=== PATIENT | female | born 1965 | race Caucasian/White ===

== ENCOUNTER 2016-04-02 21:54 | Observation (INO) ==
[2016-04-02] MEDS ORDERED: Sulfamethoxazole/Trimeth DS 1 EACH TABLET PO ONE (22:08)
[2016-04-02] MEDS ORDERED: cephALEXin 250 MG CAPSULE PO ONE (22:08)
[2016-04-02] MEDS ORDERED: *HR* HYDROcodone/Acet 5/325 mg TABLET PO ONE (22:09)
--- NOTE | 2016-04-02 22:12 | Emergency Department Note ---
Disposition Clinical Impression: Abscess of breast Cellulitis Qualifiers: Site of cellulitis: trunk Site of cellulitis of trunk: chest wall Qualified Code(s): L03.313 - Cellulitis of chest wall Disposition: Admitted As Inpatient Forms: ED Satisfaction Letter Skin/Abscess/FB HPI Chief complaint: ED Skin/Abscess/Foreign Body Stated complaint: right breast problem s/p surgery Time Seen by Provider: 04/02/16 22:01 Source: patient Limitations: no limitations Nursing Notes Reviewed: Yes Vital Signs Reviewed: Yes Pt Subjective Complaint: abscess/boil Onset (ago): hour(s) (2) Location: chest (right breast) Severity: severe Quality: burning Consistency: constant Improves with: none Worsens with: palpation Context: other (patient Had a cyst removal of the breast on March [address] Ede Delgado) Associated symptoms: Denies: fever, chills Treatments prior to arrival: attempted to drain pus at home Home Medications Medication Instructions Recorded Confirmed Oxybutynin [Ditropan] 15 mg PO DAILY 10/31/14 03/18/16 Atorvastatin [Lipitor] 40 mg PO HS 02/01/16 03/18/16 ClonazePAM [Klonopin] 1 mg PO BID 02/01/16 03/18/16 Estradiol [Estrace] 1 mg PO DAILY 02/01/16 03/18/16 HydrOXYzine Pamoate [Vistaril] 50 mg PO Q8H 02/01/16 03/18/16 Lurasidone [Latuda] 20 mg PO DAILY 02/01/16 03/18/16 Metoprolol [Lopressor] 25 mg PO DAILY 02/01/16 03/18/16 SUMAtriptan [Imitrex] 50 mg PO DAILY PRN 02/01/16 03/18/16 Aspirin 81 mg PO DAILY 03/18/16 03/18/16 ClonazePAM [Klonopin] 1 mg PO BID 03/18/16 03/18/16 Duloxetine [Cymbalta] 20 mg PO BID 03/18/16 03/18/16 Gabapentin [Neurontin] 600 mg PO TID 03/18/16 03/18/16 Insulin ASPART [Novolog Flexpen] 15 unit SQ BID 03/18/16 03/18/16 Insulin Glargine,Hum.rec.anlog 40 unit SQ HS 03/18/16 03/18/16 [Lantus Solostar] Loratadine [Allergy Relief] 10 mg PO DAILY 03/18/16 03/18/16 Nitroglycerin [Nitrostat] 0.4 mg SL AD PRN 03/18/16 03/18/16 Nut.tx.glucose Intolerance,Soy 1 each PO TIDWM 03/18/16 03/18/16 [Glucerna] Omeprazole [PriLOSEC] 20 mg PO BIDAC 03/18/16 03/18/16 Spironolactone [Aldactone] 100 mg PO DAILY 03/18/16 03/18/16 Previous Rx's Medication Instructions Recorded OxyCODONE/APAP 5/325 [Percocet 1 each PO Q6HR PRN #30 tablet 03/18/16 5/325 MG] Allergies Allergy/AdvReac Type Severity Reaction Status Date / Time celecoxib [From Celebrex] Allergy Rash Verified 10/31/14 19:33 divalproex sodium Allergy Rash Verified 10/31/14 19:33 [From Depakote] phenytoin [From Dilantin] Allergy Rash Verified 10/31/14 19:33 [place] Allergy Rash Verified 01/27/16 16:00 Bleach (Sodium Hypochlorite) AdvReac Hives Verified 01/27/16 16:00 IVP DYE Allergy Rash Uncoded 10/31/14 19:33 All systems ED: reviewed and negative except as stated. Constitutional: Denies: fever, chills Past Medical History - Past Medical History Medical history: Reports: COPD, diabetes, GERD, migraine, other Surgical history: Reports: cholecystectomy, orthopedic, other Psychiatric history: Reports: anxiety, bipolar, depression - Social History Smoking Status: Current every day smoker Smokeless Tobacco Status: No Alcohol use: Reports: none Drug use: Reports: marijuana Physical Exam - General Limitations: no limitations General appearance: alert, in no apparent distress - Head Head exam: atraumatic, normocephalic, normal inspection - Eye Eye exam: Present: normal appearance, PERRL, EOMI - Expanded Eye Exam Pupils: Left: reactive - ENT ENT exam: normal exam, normal oropharynx, mucous membranes moist - Expanded ENT Exam External ear exam: Present: normal external inspection Mouth exam: Present: normal external inspection Teeth exam: Present: normal inspection Throat exam: Present: normal inspection - Neck Neck exam: Present: normal inspection, full ROM, trachea midline - Chest Chest inspection: Present: other (Inferior margin of the patient's right breast is complaining of some tenderness there is a minimal amount of erythema may be 2 cm maximum I cannot express any pus she states she had a half-gallon of pus draining out of her nipple see any fluid with firm pressure from the wound. Nothing is able to be cultured) - Respiratory Respiratory exam: Present: normal lung sounds bilaterally - Cardiovascular Cardiovascular exam: Present: regular rate, normal rhythm, normal heart sounds - Abdominal Exam Abdominal exam: Present: soft, Non-Tender. Absent: tenderness, distention, guarding, rebound, rigidity - Extremities Exam Extremities exam: Present: normal inspection, full ROM. Absent: tenderness, pedal edema - Expanded Upper Extremity Exam Shoulder exam: Present: normal inspection, full ROM Arm exam: Present: normal inspection, full ROM Elbow exam: Present: normal inspection, full ROM Forearm/Wrist exam: Present: normal inspection, full ROM Hand exam: Present: normal inspection, full ROM Vascular exam: Normal: capillary refill, radial pulse - Expanded Lower Extremity Exam Hip/Pelvis exam: Present: normal inspection, full ROM Upper leg exam: Present: normal inspection, full ROM Knee exam: Present: normal inspection, full ROM Lower leg exam: Present: normal inspection, full ROM Ankle exam: Present: normal inspection, full ROM Foot/toe exam: Present: normal inspection, full ROM Neurovascular/Tendon exam: Absent: motor deficit, sensory deficit, tendon deficit - Back Exam Back exam: Present: normal inspection, full ROM. Absent: tenderness - Neurological Exam Neurological exam: Present: alert, oriented X3 - Expanded Neurological Exam Patient oriented to: Present: person, place, time Coma Scale Eye Opening: Spontaneous Coma Scale Motor Response: Obeys Commands Coma Scale Verbal Response: Oriented Coma Scale Total: 15 - Psychiatric Psychiatric exam: Present: normal affect, normal mood - Skin Skin exam: Present: warm, dry, intact, normal color Course Vital Signs Temperature 98.4 F 04/02/16 21:56 Pulse Rate 85 04/02/16 21:56 Respiratory Rate 18 04/02/16 21:56 Blood Pressure 117/77 04/02/16 21:56 O2 Sat by Pulse Oximetry 98 04/02/16 21:56 Temperature 98.4 F 04/02/16 21:56 Pulse Rate 85 04/02/16 21:56 Respiratory Rate 18 04/02/16 21:56 Blood Pressure 117/77 04/02/16 21:56 O2 Sat by Pulse Oximetry 98 04/02/16 21:56 Oxygen Delivery Oxygen Delivery Room Air Skin/Abscess/Foreign Body - Differential Diagnosis Likely: abscess of skin or subcutaneous tissue, allergic reaction to drug, cellulitis, contact dermatitis - Medical Records Medical records reviewed: Yes I reviewed the patient's medical records. - Lab Data Lab results reviewed: Yes I reviewed the patient's lab results. Result diagrams: 04/02/16 22:56 04/02/16 22:56 Lab Results 04/02/16 04/02/16 Range/Units 22:56 22:56 WBC 13.7 H (4.3-11.1) K/mcL RBC 3.76 L (3.82-4.97) M/mcL Hgb 10.9 L (11.5-15.4) g/dL Hct 33.3 L (35.3-44.9) % MCV 88.6 (83.0-100.0) fL MCH 29.0 (28.0-33.3) pg MCHC 32.7 (31.6-35.5) g/dL RDW 13.7 (11.5-14.5) % Plt Count 273 (140-400) K/mcL MPV 10.5 (9.4-12.4) fL Immature Gran % 0.5 (0-4) % Seg Neutrophils % 60.6 % Lymphocytes % 27.6 % Monocytes % 8.9 % Eosinophils % 2.2 % Basophils % 0.2 % Neutrophils # 8.3 (1.6-8.9) K/mcL Lymphocytes # 3.8 (0.6-4.6) K/mcL Monocytes # 1.2 (0.0-1.3) K/mcL Eosinophils # 0.3 (0.0-0.6) K/mcL Basophils # 0.0 (0.0-0.2) K/mcL Immature Plt Fraction 4.2 (1.1-6.1) % Sodium 133 L (136-145) mEq/L Potassium 3.8 (3.5-4.5) mEq/L Chloride 109 (98-109) mEq/L Carbon Dioxide 17 L (19-29) mEq/L BUN 14 (7-20) mg/dL Creatinine 1.49 H (0.57-1.11) mg/dL Est GFR ( Amer) 45 L (> 60) Est GFR (Non-Af Amer) 37 L (> 60) BUN/Creatinine Ratio 9 (6-26) Glucose 57 L (70-99) mg/dL Calculated Osmolality 274 L (280-300) Calcium 8.4 L (8.6-10.8) mg/dL
[2016-04-02] MEDS ORDERED: Vancomycin 1,250 MG in D5% in Water 250 ML IVPB ONE ×2 (23:00→23:29)
[2016-04-02 23:08] LABS: Hematocrit 33.3 % (35.3-44.9); Hemoglobin 10.9 g/dL (11.5-15.4); Immature Platelets 4.2 % (1.1-6.1); Mean Corpuscular HGB Conc 32.7 g/dL (31.6-35.5); Mean Corpuscular Volume 88.6 fL (83.0-100.0); Mean Platelet Volume 10.5 fL (9.4-12.4); Platelet Count 273 K/mcL (140-400); Red Blood Count 3.76 M/mcL (3.82-4.97); Red Cell Distribution Width 13.7 % (11.5-14.5); Segmented Neutrophils % 60.6 %
[2016-04-02 23:09] LABS: Basophils % 0.2 %; Eosinophils # 0.3 K/mcL (0.0-0.6); Eosinophils % 2.2 %; Immature Granulocytes % 0.5 % (0-4); Lymphocytes # 3.8 K/mcL (0.6-4.6); Lymphocytes % 27.6 %; Monocytes # 1.2 K/mcL (0.0-1.3); Monocytes % 8.9 %; Neutrophils # 8.3 K/mcL (1.6-8.9)
[2016-04-02 23:20] LABS: Calcium 8.4 mg/dL (8.6-10.8); Potassium 3.8 mEq/L (3.5-4.5)
[2016-04-02] MEDS ORDERED: Piperacillin/Tazobactam 3.375 GM in D5% in Water (Mini-Bag+) 100 ML IVPB ONE (23:29)
[2016-04-02] MEDS ORDERED: *HR* HYDROmorphone (PF) 1 MG/ML SYRINGE IV ONE (23:30)
[2016-04-02] MEDS ORDERED: Ondansetron 4 MG/2 ML VIAL IV ONE (23:30)
[2016-04-03 00:19] LABS: Hemoglobin A1C 6.5 %
[2016-04-03] MEDS ORDERED: Naloxone 0.4 MG/ML INJ IVP PRN (01:34)
[2016-04-03] MEDS ORDERED: Ondansetron 4 MG/2 ML VIAL IVP PRN (01:34)
[2016-04-03] MEDS ORDERED: *HR* Dextrose 50 % in Water (Syg) 50 ML SYRINGE IVP PRN (01:38)
[2016-04-03] MEDS ORDERED: D5% in Water 1,000 ML IV PRN (01:38)
[2016-04-03] MEDS ORDERED: Dextrose Gel 15 GM PO PRN ×2 (01:38)
[2016-04-03] MEDS ORDERED: Ipratropium/Albuterol Neb 3 ML IH PRN (01:41)
--- NOTE | 2016-04-03 02:08 | Internal Med History&Physical ---
Date of Encounter: 04/03/16 Time of Encounter: 01:15 Assessment and Plan (1) Breast abscess Current visit: Yes Status: Acute -Infected surgical site s/p right breast cyst resection -f/u wound cultures -f/u right breast US -continue IV abx (pharmacy to dose Vancomycin, follow up Vanco trough) -please call surgical consultation in am, surgery performed by Dr. Delgado. 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 Qualified Code(s): E11.8 - Type 2 diabetes mellitus with unspecified complications; Z79.4 - care home (current) use of insulin (3) COPD (chronic obstructive pulmonary disease) Current visit: Yes Status: Chronic Not in acute exacerbation Not on home oxygen continue to monitor O2 sat O2 supplementation as needed bronchodilators as needed restart home medications after verification Qualifiers: COPD type: unspecified COPD Qualified Code(s): J44.9 - Chronic obstructive pulmonary disease, unspecified (4) Hypertension Current visit: Yes Status: Chronic BP within acceptable range continue home medication after verification Qualifiers: Hypertension type: essential hypertension Qualified Code(s): I10 - Essential (primary) hypertension (5) CKD (chronic kidney disease) Current visit: Yes Status: Chronic Kidney function appears to be at baseline continue to monitor Qualifiers: Chronic kidney disease stage: stage 3 (moderate) Qualified Code(s): N18.3 - Chronic kidney disease, stage 3 (moderate) (6) DVT prophylaxis Current visit: Yes Status: Acute Heparin SQ (7) Cigarette smoker Current visit: Yes Status: Acute -Smoking cessation counseling provided -patient reports of trying to quit but not ready to completely quit at this time -Nicotine replacement therapy provided while hospitalized Internal Medicine - H&P: HPI Chief complaint: drainage from right breast Admitted From: Home Plans for Post Hospital Care: Home History of present illness: Ms. Dent is a 51 year old female with PMH of DM, HTN, Epilepsy, GERD, migraine, Depression, anxiety, bipolar dx who is s/p right breast cyst excision on 03/18/16 presents to the ER for evaluation of drainage from the right breast at the site of the resected cyst. Pt states she forgot about her follow up appointment with surgical clinic which was a couple of days ago. States she noticed drainage at the surgical site starting around 8pm and reports of being a significant amount, foul smelling discharge which prompted her visit to the ER. In the ER initially the ER physician was not able to notice any discharge, however during his re-evaluation he noted a purulent discharge which was sent for cultures. Patient reports of having diabetic foot ulcers and underwent surgical resection of her toes by Dr. Figueroa in January 2016. During my evaluation patient is sitting comfortably in bed, reports of adequate pain relief with the medication she received in the ER. With mild palpation, patient is still have purulent discharge from the right breast at the surgical site. She denies any other discomfort at this time. Social Hx: Every day smoker-1ppd Past Med Surg Social Fam HX - Past Medical History Medical history: COPD, diabetes, GERD, hyperlipidemia, hypertension, migraine, other Psychiatric history: anxiety, bipolar, depression - Past Surgical History Surgical History: appendectomy, , cholecystectomy, hysterectomy, orthopedic, other - Social History Smoking Status: Current every day smoker Smokeless Tobacco Status: No Alcohol use: none Drug use: none - Family History Mother Living Status: Cause of : Heart attack Hx Family Cardiac Disorders: Yes (Heart attack) Hx Family Respiratory Disorders: Yes (copd) Hx Family Cancer: Yes (breast cancer) Hx Family Endocrine Disorder: Yes (Diabetes) Internal Medicine - H&P: Meds Oxybutynin [Ditropan] 15 mg PO DAILY 10/31/14 [History] Atorvastatin [Lipitor] 40 mg PO HS 02/01/16 [History] ClonazePAM [Klonopin] 1 mg PO BID 02/01/16 [History] Estradiol [Estrace] 1 mg PO DAILY 02/01/16 [History] HydrOXYzine Pamoate [Vistaril] 50 mg PO Q8H 02/01/16 [History] Lurasidone [Latuda] 20 mg PO DAILY 02/01/16 [History] Metoprolol [Lopressor] 25 mg PO DAILY 02/01/16 [History] SUMAtriptan [Imitrex] 50 mg PO DAILY PRN 02/01/16 [History] Aspirin 81 mg PO DAILY 03/18/16 [History] ClonazePAM [Klonopin] 1 mg PO BID 03/18/16 [History] Duloxetine [Cymbalta] 20 mg PO BID 03/18/16 [History] Gabapentin [Neurontin] 600 mg PO TID 03/18/16 [History] Insulin ASPART [Novolog Flexpen] 15 unit SQ BID 03/18/16 [History] Insulin Glargine,Hum.rec.anlog [Lantus Solostar] 40 unit SQ HS 03/18/16 [History ] Loratadine [Allergy Relief] 10 mg PO DAILY 03/18/16 [History] Nitroglycerin [Nitrostat] 0.4 mg SL AD PRN 03/18/16 [History] Nut.tx.glucose Intolerance,Soy [Glucerna] 1 each PO TIDWM 03/18/16 [History] Omeprazole [PriLOSEC] 20 mg PO BIDAC 03/18/16 [History] OxyCODONE/APAP 5/325 [Percocet 5/325 MG] 1 each PO Q6HR PRN #30 tablet 03/18/16 [Rx] Spironolactone [Aldactone] 100 mg PO DAILY 03/18/16 [History] Allergies celecoxib [From Celebrex] Allergy (Verified 10/31/14 19:33) Rash divalproex sodium [From Depakote] Allergy (Verified 10/31/14 19:33) Rash phenytoin [From Dilantin] Allergy (Verified 10/31/14 19:33) Rash [place] Allergy (Verified 01/27/16 16:00) Rash Bleach (Sodium Hypochlorite) Adverse Reaction (Verified 01/27/16 16:00) Hives IVP DYE Allergy (Uncoded 10/31/14 19:33) Rash All Systems PM: A 10-system review of systems was performed and is negative for pertinent findings except as documented above in the HPI. - Constitutional Constitutional: no chills, no fever(s) - Cardiovascular Cardiovascular ROS IM: no chest pain, no lightheadedness, no palpitations - Respiratory Respiratory: no cough, no wheezing, no chest congestion - Gastrointestinal Gastrointestinal: no constipation, no diarrhea, no nausea, no vomiting - Constitutional Vitals: Temp Pulse Resp BP Pulse Ox 97.8 F 64 16 109/67 96 04/03/16 01:28 04/03/16 01:28 04/03/16 01:28 04/03/16 01:28 04/03/16 01:28 General appearance: Present: A&O X 3, no acute distress, obese, answers questions appropriately - Head Head exam: Present: atraumatic, normocephalic - Eye Eye exam: Present: PERRL, conjuntiva pink, sclera anicteric - Respiratory Respiratory exam: Present: CTAB. Absent: accessory muscle use, rales, rhonchi, wheezes - Cardiovascular Cardiovascular exam: Present: RRR, +S1, +S2. Absent: diastolic murmur, gallop, rubs, systolic murmur - GI/Abdominal GI/Abdominal exam: Present: normal bowel sounds, soft, no peritoneal signs. Absent: distended, tenderness - Extremities Exam Extremities exam: Present: warm, radial pulses palpable and symetrical (right foot wrapped in dressing). Absent: calf tenderness, pedal edema - Neurological Exam Neurological exam: Present: alert, oriented X3 - Psychiatric Psychiatric exam: Present: normal affect, normal mood - Other Additional findings: Right Breast Exam: lateral inferior areolar erythema at the surgical site, purulent drainage noted with palpation, mild tenderness to palpation) Internal Med - H&P Results - Labs CBC & Chem 7: 04/02/16 22:56 04/02/16 22:56
[2016-04-03] MEDS ORDERED: Povidone-Iodine 237 ML BOTTLE TP ONE (02:20)
[2016-04-03] MEDS ORDERED: Lidocaine 4% CREAM (LMX) 5 GM TP ONE (02:21)
[2016-04-03] MEDS: Nicotine 21 MG PATCH.TD24 TD SCH (02:34)
[2016-04-03] MEDS: 0.9 % Sodium Chloride 1,000 ML IVC SCH ×2 (02:35→21:10)
[2016-04-03] MEDS: *HR* HYDROcodone/Acet 5/325 mg TABLET PO PRN ×2 (04:16→12:29)
[2016-04-03] MEDS: clonazePAM 1 MG TABLET PO PRN (04:16)
[2016-04-03 05:50] LABS: Basophils % 0.4 %; Eosinophils # 0.4 K/mcL (0.0-0.6); Eosinophils % 3.5 %; Hematocrit 31.4 % (35.3-44.9); Hemoglobin 10.3 g/dL (11.5-15.4); Immature Granulocytes % 0.7 % (0-4); Lymphocytes # 3.6 K/mcL (0.6-4.6); Lymphocytes % 32.9 %; Mean Corpuscular HGB Conc 32.8 g/dL (31.6-35.5); Mean Corpuscular Hemoglobin 29.2 pg (28.0-33.3); Mean Platelet Volume 10.8 fL (9.4-12.4); Monocytes % 9.5 %; Neutrophils # 5.8 K/mcL (1.6-8.9); Platelet Count 231 K/mcL (140-400); Red Blood Count 3.53 M/mcL (3.82-4.97); Red Cell Distribution Width 13.6 % (11.5-14.5)
[2016-04-03] MEDS ORDERED: Vancomycin 1,000 MG in D5% in Water 250 ML IVPB SCH (06:00)
[2016-04-03 06:08] LABS: Calcium 7.9 mg/dL (8.6-10.8); Magnesium 1.3 mg/dL (1.6-2.6); Potassium 3.8 mEq/L (3.5-4.5)
[2016-04-03] MEDS: *HR* Heparin 5,000 UNIT/ML VIAL SQ SCH ×3 (06:42→23:35)
[2016-04-03] MEDS: Insulin LISPRO 300 UNITS/3 ML VIAL SQ SCH ×4 (08:11→21:32)
[2016-04-03] MEDS: Piperacillin/Tazobactam 3.375 GM in D5% in Water (Mini-Bag+) 100 ML IVPB SCH ×3 (08:14→23:34)
[2016-04-03] MEDS ORDERED: Nitroglycerin 0.4 MG TAB.SUBL SL PRN (13:05)
--- NOTE | 2016-04-03 13:39 | General Surgery Consult Note ---
<Alessia Hurt - Last Filed: 04/03/16 13:34> Date of Encounter: 04/03/16 Time of Encounter: 13:34 Assessment and Plan (1) Cellulitis Current Visit: Yes Status: Acute possible abscess wound culture pending right breast ultrasound ordered continue IV antibiotics - Vancomycin and Zosyn change abd pad daily-BID pain control supportive care Qualifiers: Site of cellulitis: trunk Site of cellulitis of trunk: chest wall Qualified Code(s): L03.313 - Cellulitis of chest wall (2) CKD (chronic kidney disease) Current Visit: Yes Status: Chronic at baseline management per medicine service Qualifiers: Chronic kidney disease stage: stage 3 (moderate) Qualified Code(s): N18.3 - Chronic kidney disease, stage 3 (moderate) (3) COPD (chronic obstructive pulmonary disease) Current Visit: Yes Status: Chronic Qualifiers: COPD type: unspecified COPD Qualified Code(s): J44.9 - Chronic obstructive pulmonary disease, unspecified (4) Diabetes mellitus Current Visit: Yes Status: Chronic management per medicine service Qualifiers: Diabetes mellitus type: type 2 Diabetes mellitus complication status: with unspecified complications Diabetes mellitus terminal operator insulin use: with terminal operator use Qualified Code(s): E11.8 - Type 2 diabetes mellitus with unspecified complications; Z79.4 - snf (current) use of insulin (5) Hypertension Current Visit: Yes Status: Chronic management per medicine service Qualifiers: Hypertension type: essential hypertension Qualified Code(s): I10 - Essential (primary) hypertension (6) DVT prophylaxis Current Visit: Yes Status: Acute heparin SQ History of Present Illness Consult date: 04/03/16 Reason for consult: other (?breast abscess) Requesting physician: Don Wilder History of present illness: Ms. Dent is a 51 yo female who presented to the ER complaining of drainage of pus from her incision site on her right breast. She had a right breast lumpectomy with excision of nipple lesion by Dr. Delgado on 03/18/2016. (The specimen was 3x3x2 cm, the sinus tract in the nipple was 6x5x3 mm.) The patient noticed drainage last night and came to the ER. She was admitted to the hospital for cellulitis and possible breast abscess. Past Med Surg Social Fam HX - Past Medical History Medical history: COPD, diabetes, GERD, hyperlipidemia, hypertension, migraine, other Psychiatric history: anxiety, bipolar, depression - Past Surgical History Surgical History: appendectomy, , cholecystectomy, hysterectomy, orthopedic, other - Social History Smoking Status: Current every day smoker Smokeless Tobacco Status: No Alcohol use: none Drug use: none - Family History Mother Living Status: Cause of : Heart attack Hx Family Cardiac Disorders: Yes (Heart attack) Hx Family Respiratory Disorders: Yes (copd) Hx Family Cancer: Yes (breast cancer) Hx Family Endocrine Disorder: Yes (Diabetes) Medications and Allergies Oxybutynin [Ditropan] 15 mg PO DAILY 10/31/14 [History] Atorvastatin [Lipitor] 20 mg PO DAILY 02/01/16 [History] Estradiol [Estrace] 1 mg PO DAILY 02/01/16 [History] HydrOXYzine Pamoate [Vistaril] 25 mg PO Q8H 02/01/16 [History] Lurasidone [Latuda] 40 mg PO DAILY 02/01/16 [History] Metoprolol [Lopressor] 12.5 mg PO BID 02/01/16 [History] SUMAtriptan [Imitrex] 50 mg PO DAILY PRN 02/01/16 [History] ClonazePAM [Klonopin] 1 mg PO BID 03/18/16 [History] Duloxetine [Cymbalta] 20 mg PO BID 03/18/16 [History] Gabapentin [Neurontin] 600 mg PO TID 03/18/16 [History] Loratadine [Allergy Relief] 10 mg PO DAILY 03/18/16 [History] Nitroglycerin [Nitrostat] 0.4 mg SL PRN PRN 03/18/16 [History] Nut.tx.glucose Intolerance,Soy [Glucerna] 1 each PO TIDWM 03/18/16 [History] Omeprazole [PriLOSEC] 20 mg PO DAILY 03/18/16 [History] Spironolactone [Aldactone] 100 mg PO DAILY 03/18/16 [History] Albuterol Sulfate [Proair Hfa] 2 puff IH Q6H PRN 04/03/16 [History] Aspirin [Lo-Dose Aspirin EC] 81 mg PO DAILY 04/03/16 [History] Budesonide/Formoterol 160/4.5 [Symbicort 160/4.5] 2 puff IH BID 04/03/16 [ History] Calcium Carbonate/Vitamin D3 [Oyster Shell Calcium-Vit D Tab] 1 tab PO BID 04/03 [History] Insulin ASPART [NovoLOG] 2 - 12 unit SQ TIDWM 04/03/16 [History] Insulin Glargine,Hum.rec.anlog [Lantus Solostar] 40 unit SQ HS 04/03/16 [History ] Lipase/Protease/Amylase [Guillermina Aguiar 24,000 Units Capsule] 1 cap PO QID 04/03/16 [ History] Metformin [Glucophage] 1,000 mg PO BID 04/03/16 [History] Topiramate [Topamax] 200 mg PO BID 04/03/16 [History] Trazodone HCl 150 mg PO HS 04/03/16 [History] Allergies acetaminophen [From Tylenol-Codeine #3] Allergy (Verified 04/03/16 17:04) Anaphylaxis Bleach (Sodium Hypochlorite) Allergy (Verified 04/03/16 17:04) Hives celecoxib [From Celebrex] Allergy (Verified 10/31/14 19:33) Rash codeine [From Tylenol-Codeine #3] Allergy (Verified 04/03/16 17:04) Anaphylaxis divalproex sodium [From Depakote] Allergy (Verified 10/31/14 19:33) Rash phenytoin [From Dilantin] Allergy (Verified 10/31/14 19:33) Rash [place] Allergy (Verified 01/27/16 16:00) Rash cranberry Adverse Reaction (Verified 04/03/16 17:04) Vomiting IVP DYE Allergy (Uncoded 10/31/14 19:33) Rash PINE-KRYSTEN Allergy (Uncoded 04/03/16 17:04) Rash Review of Systems All systems PM: A 10-system review of systems was performed and is negative for pertinent findings except as documented above in the HPI. - Constitutional no chills, no fatigue, no fever(s), no weakness - Breasts pain, skin changes, swelling - Cardiovascular no chest pain - Respiratory no dyspnea - Gastrointestinal no abdominal pain, no change in bowel habits, no vomiting General Surgery Exam Initial Vital Signs Temp Pulse Resp BP Pulse Ox 98.4 F 85 18 117/77 98 04/02/16 21:56 04/02/16 21:56 04/02/16 21:56 04/02/16 21:56 04/02/16 21:56 - General physical appearance well developed, well nourished, no distress - Eyes normal ocular movement - ENT normal mucosa, atraumatic, normocephalic - Neck trachea midline - Respiratory normal respiratory effort, clear to auscultation - Cardiovascular Cardiovascular exam: Present: RRR - Abdomen Abdomen general surgery: Present: bowel sounds present, soft, non tender - Integumentary Integumentary general surgery: Present: other (subareolar skin of right breast erythematous, no drainage on physical exam) - Neurologic Present: CN 2-12 grossly intact - Psychiatric Psychiatric general surgery: Present: A&Ox3 Exam Initial Vital Signs Temp Pulse Resp BP Pulse Ox 98.4 F 85 18 117/77 98 04/02/16 21:56 04/02/16 21:56 04/02/16 21:56 04/02/16 21:56 04/02/16 21:56 Results - Labs 04/03/16 05:12 04/03/16 05:12 Abnormal lab results RBC 3.53 M/mcL (3.82-4.97) L 04/03/16 05:12 Hgb 10.3 g/dL (11.5-15.4) L 04/03/16 05:12 Hct 31.4 % (35.3-44.9) L 04/03/16 05:12 ESR 20 mm/hr (0-15) H 04/02/16 22:56 Sodium 132 mEq/L (136-145) L 04/03/16 05:12 Carbon Dioxide 15 mEq/L (19-29) L 04/03/16 05:12 Creatinine 1.63 mg/dL (0.57-1.11) H 04/03/16 05:12 Est GFR ( Amer) 40 (> 60) L 04/03/16 05:12 Est GFR (Non-Af Amer) 33 (> 60) L 04/03/16 05:12 Glucose 108 mg/dL (70-99) H 04/03/16 05:12 POC Glucose 141 (58-89) H 04/03/16 12:24 Hemoglobin A1c 6.5 % (-5.6) H 04/02/16 22:56 Calculated Osmolality 275 (280-300) L 04/03/16 05:12 Calcium 7.9 mg/dL (8.6-10.8) L 04/03/16 05:12 Magnesium 1.3 mg/dL (1.6-2.6) L 04/03/16 05:12 C-Reactive Protein 13 mg/L (Less than 5) H 04/02/16 22:56 Diabetes panel 04/03/16 Range/Units 05:12 Sodium 132 L (136-145) mEq/L Potassium 3.8 (3.5-4.5) mEq/L Chloride 108 (98-109) mEq/L Carbon Dioxide 15 L (19-29) mEq/L BUN 15 (7-20) mg/dL Creatinine 1.63 H (0.57-1.11) mg/dL Glucose 108 H (70-99) mg/dL Calcium 7.9 L (8.6-10.8) mg/dL Calcium panel 04/03/16 Range/Units 05:12 Calcium 7.9 L (8.6-10.8) mg/dL Phosphorus 4.0 (2.3-4.7) mg/dL Pituitary panel 04/03/16 Range/Units 05:12 Sodium 132 L (136-145) mEq/L Potassium 3.8 (3.5-4.5) mEq/L Chloride 108 (98-109) mEq/L Carbon Dioxide 15 L (19-29) mEq/L BUN 15 (7-20) mg/dL Creatinine 1.63 H (0.57-1.11) mg/dL Glucose 108 H (70-99) mg/dL Calcium 7.9 L (8.6-10.8) mg/dL Adrenal panel 04/03/16 Range/Units 05:12 Sodium 132 L (136-145) mEq/L Potassium 3.8 (3.5-4.5) mEq/L Chloride 108 (98-109) mEq/L Carbon Dioxide 15 L (19-29) mEq/L BUN 15 (7-20) mg/dL Creatinine 1.63 H (0.57-1.11) mg/dL Glucose 108 H (70-99) mg/dL Calcium 7.9 L (8.6-10.8) mg/dL All other labs normal. Consult Discharge Plan - Plan Referrals: Rosy Martinez, JOSE [Primary Care Provider] - <Weston Chris M - Last Filed: 04/03/16 23:49> Date of Encounter: 04/03/16 Review of Systems All systems PM: A 10-system review of systems was performed and is negative for pertinent findings except as documented above in the HPI. General Surgery Exam Initial Vital Signs Temp Pulse Resp BP Pulse Ox 98.4 F 85 18 117/77 98 04/02/16 21:56 04/02/16 21:56 04/02/16 21:56 04/02/16 21:56 04/02/16 21:56 Exam Initial Vital Signs Temp Pulse Resp BP Pulse Ox 98.4 F 85 18 117/77 98 04/02/16 21:56 04/02/16 21:56 04/02/16 21:56 04/02/16 21:56 04/02/16 21:56 Results - Labs 04/03/16 05:12 04/03/16 05:12 Abnormal lab results RBC 3.53 M/mcL (3.82-4.97) L 04/03/16 05:12 Hgb 10.3 g/dL (11.5-15.4) L 04/03/16 05:12 Hct 31.4 % (35.3-44.9) L 04/03/16 05:12 ESR 20 mm/hr (0-15) H 04/02/16 22:56 Sodium 132 mEq/L (136-145) L 04/03/16 05:12 Carbon Dioxide 15 mEq/L (19-29) L 04/03/16 05:12 Creatinine 1.63 mg/dL (0.57-1.11) H 04/03/16 05:12 Est GFR ( Amer) 40 (> 60) L 04/03/16 05:12 Est GFR (Non-Af Amer) 33 (> 60) L 04/03/16 05:12 Glucose 108 mg/dL (70-99) H 04/03/16 05:12 POC Glucose 126 (58-89) H 04/03/16 21:18 Hemoglobin A1c 6.5 % (-5.6) H 04/02/16 22:56 Calculated Osmolality 275 (280-300) L 04/03/16 05:12 Calcium 7.9 mg/dL (8.6-10.8) L 04/03/16 05:12 Magnesium 1.3 mg/dL (1.6-2.6) L 04/03/16 05:12 C-Reactive Protein 13 mg/L (Less than 5) H 04/02/16 22:56 Diabetes panel 04/03/16 Range/Units 05:12 Sodium 132 L (136-145) mEq/L Potassium 3.8 (3.5-4.5) mEq/L Chloride 108 (98-109) mEq/L Carbon Dioxide 15 L (19-29) mEq/L BUN 15 (7-20) mg/dL Creatinine 1.63 H (0.57-1.11) mg/dL Glucose 108 H (70-99) mg/dL Calcium 7.9 L (8.6-10.8) mg/dL Calcium panel 04/03/16 Range/Units 05:12 Calcium 7.9 L (8.6-10.8) mg/dL Phosphorus 4.0 (2.3-4.7) mg/dL Pituitary panel 04/03/16 Range/Units 05:12 Sodium 132 L (136-145) mEq/L Potassium 3.8 (3.5-4.5) mEq/L Chloride 108 (98-109) mEq/L Carbon Dioxide 15 L (19-29) mEq/L BUN 15 (7-20) mg/dL Creatinine 1.63 H (0.57-1.11) mg/dL Glucose 108 H (70-99) mg/dL Calcium 7.9 L (8.6-10.8) mg/dL Adrenal panel 04/03/16 Range/Units 05:12 Sodium 132 L (136-145) mEq/L Potassium 3.8 (3.5-4.5) mEq/L Chloride 108 (98-109) mEq/L Carbon Dioxide 15 L (19-29) mEq/L BUN 15 (7-20) mg/dL Creatinine 1.63 H (0.57-1.11) mg/dL Glucose 108 H (70-99) mg/dL Calcium 7.9 L (8.6-10.8) mg/dL All other labs normal. - Attending Attestation I examined this patient and my medical decision-making was reviewed with the PRESS TENDER/PA/Advanced Practice Nurse/Resident Physician. I agree with the documented findings, disposition and treatment plan as described except to the extent set forth below. I evaluated patient and reviewed the above assessment. Agree with IV antibiotics and monitor drainage of the incision on the 4 x 4 dressing. There is induration noted over the incision but no true abscess identified. To consider opening the incision to allow to drain but will follow white count and perform serial abdominal exam. Dr. Delgado to return on 04/04/2016.
[2016-04-03] MEDS ORDERED: *HR* LORazepam 2 MG/ML VIAL IVP PRN (13:40)
[2016-04-03] MEDS: Gabapentin 300 MG CAPSULE PO SCH ×2 (13:50→20:42)
--- NOTE | 2016-04-03 15:46 | Event Note ---
Date of Encounter: 04/03/16 Time of Encounter: 15:30 51/F Background Medical history: DM with multiple comorbidities, HTN, Dyslipidemia, COPD, SZD, CKD, Recent Breast surgery for cyst removal. Reason for admission : right breast abscess. Hospital course : Patient is admitted for persistent purulent discharge from her right breast. The discharge is mainly from the incision site where the cyst was removed. Patient also has a diabetic foot ulcer for which she was evaluated by surgery. Patient was admitted for persistent purulent discharge from her right breast which is likely secondary to the underlying abscess formation. Patient was started on antibiotics. She was started on vancomycin to cover gram-positive and Zosyn for gram-negative as well as anaerobic coverage. So far patient tolerated antibiotics well. Surgery was consulted and we will follow the recommendation. Vitals: Afebrile, 73/m, blood pressure 116/79, oxygen saturation 98% on room air Examination: I examined this patient at bedside. Examination of her eyes, ears , nose, oral cavity and cervical area did not reveal any abnormality. Examination of the right breast shows purulent discharge from the breast. Examination of the heart and lungs are within normal limits. Examination of the abdomen is benign. Brief neurological examination did not reveal any abnormality. Examination of the skin revealed no bruise or breaks. Assessment: Right breast abscess, diabetic foot ulcers, hypertension Plan: -Continue IV antibiotics. -Follow surgical recommendations. -Pain control. -Resume home medications. I was informed that patient has unwitnessed seizure. Recommended seizure precautions. IV Ativan 2 mg when necessary ordered. Home medications for seizure disorder resumed.
[2016-04-03] MEDS: *HR* OxyCODONE/APAP 7.5/325 TABLET PO PRN ×2 (16:51→20:43)
[2016-04-03] MEDS: Topiramate 100 MG TABLET PO SCH (20:42)
[2016-04-03] MEDS: clonazePAM 1 MG TABLET PO SCH (20:43)
[2016-04-03] MEDS ORDERED: clonazePAM 1 MG TABLET PO SCH (21:00)
[2016-04-03] MEDS: Vancomycin 1,250 MG in D5% in Water 250 ML IVPB SCH (23:35)
[2016-04-04 05:25] LABS: Basophils % 0.5 %; Eosinophils # 0.3 K/mcL (0.0-0.6); Eosinophils % 3.5 %; Hematocrit 35.2 % (35.3-44.9); Hemoglobin 11.2 g/dL (11.5-15.4); Immature Granulocytes % 0.4 % (0-4); Lymphocytes # 3.1 K/mcL (0.6-4.6); Lymphocytes % 37.8 %; Mean Corpuscular HGB Conc 31.8 g/dL (31.6-35.5); Mean Corpuscular Hemoglobin 28.1 pg (28.0-33.3); Mean Corpuscular Volume 88.4 fL (83.0-100.0); Mean Platelet Volume 10.3 fL (9.4-12.4); Monocytes # 0.7 K/mcL (0.0-1.3); Monocytes % 8.3 %; Neutrophils # 4.1 K/mcL (1.6-8.9); Platelet Count 260 K/mcL (140-400); Red Blood Count 3.98 M/mcL (3.82-4.97); Red Cell Distribution Width 13.6 % (11.5-14.5); Segmented Neutrophils % 49.5 %
[2016-04-04] MEDS: *HR* OxyCODONE/APAP 7.5/325 TABLET PO PRN ×3 (05:38→20:06)
[2016-04-04] MEDS: *HR* Heparin 5,000 UNIT/ML VIAL SQ SCH ×3 (05:39→23:41)
[2016-04-04 05:47] LABS: Potassium 4.2 mEq/L (3.5-4.5)
[2016-04-04 05:48] LABS: Albumin 2.8 g/dL (3.5-5.0); Albumin/Globulin Ratio 0.9 (1.1-2.2); Bilirubin,Total 0.3 mg/dL (0.2-1.2); Calcium 8.6 mg/dL (8.6-10.8); Globulin 3.2 g/dL (2.4-3.5)
[2016-04-04] MEDS: Topiramate 100 MG TABLET PO SCH ×2 (09:53→20:05)
[2016-04-04] MEDS: Nicotine 21 MG PATCH.TD24 TD SCH (09:53)
[2016-04-04] MEDS: Gabapentin 300 MG CAPSULE PO SCH ×3 (09:54→20:06)
[2016-04-04] MEDS: clonazePAM 1 MG TABLET PO SCH ×2 (09:54→20:05)
[2016-04-04] MEDS: Piperacillin/Tazobactam 3.375 GM in D5% in Water (Mini-Bag+) 100 ML IVPB SCH ×3 (09:55→23:40)
[2016-04-04] MEDS: Insulin LISPRO 300 UNITS/3 ML VIAL SQ SCH ×4 (09:56→20:06)
--- NOTE | 2016-04-04 12:30 | General Surgery Progress Note ---
Date of Encounter: 04/04/16 Time of Encounter: 10:00 - Assessment and Plan (1) Cellulitis Current Visit: Yes Status: Acute Breast US showed corresponding with the R surgical biospy a complex 4 cm fluid collection with no significant hyperemia, suggestive of hematoma. Preliminary wound culture shows gram neg rods. continue IV antibiotics - Vancomycin and Zosyn change pad daily-BID pain control supportive care Qualifiers: Site of cellulitis: trunk Site of cellulitis of trunk: chest wall Qualified Code(s): L03.313 - Cellulitis of chest wall (2) CKD (chronic kidney disease) Current Visit: Yes Status: Chronic management per medicine service Qualifiers: Chronic kidney disease stage: stage 3 (moderate) Qualified Code(s): N18.3 - Chronic kidney disease, stage 3 (moderate) (3) COPD (chronic obstructive pulmonary disease) Current Visit: Yes Status: Chronic Wheezing heard on exam, no respiratory distress. Management per medicine service Qualifiers: COPD type: unspecified COPD Qualified Code(s): J44.9 - Chronic obstructive pulmonary disease, unspecified (4) Diabetes mellitus Current Visit: Yes Status: Chronic management per medicine service Qualifiers: Diabetes mellitus type: type 2 Diabetes mellitus complication status: with unspecified complications Diabetes mellitus senior care insulin use: with senior care use Qualified Code(s): E11.8 - Type 2 diabetes mellitus with unspecified complications; Z79.4 - intermodal customer service (current) use of insulin (5) Hypertension Current Visit: Yes Status: Chronic management per medicine service Qualifiers: Hypertension type: essential hypertension Qualified Code(s): I10 - Essential (primary) hypertension (6) DVT prophylaxis Current Visit: Yes Status: Acute Heparin SQ Subjective Patient reports: no new complaints, still having pain, afebrile Objective Vital Signs - Last 8 Hours Temp Pulse Resp BP Pulse Ox 04/04/16 10:50 98.5 F 68 14 107/65 98 04/04/16 07:22 97.8 F 61 14 111/61 95 Intake and Output 04/03/16 04/04/16 04/04/16 23:59 07:59 15:59 Intake Total 917 / 917 100 / 100 Output Total 950 / 950 400 / 400 1000 / 1000 Balance -33 / -33 -300 / -300 -1000 / -1000 Intake: IV Fluids 917 / 917 100 / 100 0.9 % Sodium Chloride 1, 817 / 817 000 ML @ 50 mls/hr IVC . Q20H RYLEE Rx#:[id number] Zosyn 3.375 GM In 100 / 100 100 / 100 Dextrose 5% (Minibag+) 100 ML 100 ML @ 25 mls/hr IVPB Q8HR RYLEE Rx#: [id number] Output: Urine 950 / 950 400 / 400 1000 / 1000 Other: Meal Keeping Weight 84.5 kg Blood Glucose* 126 140 223 Patient Weight 04/04/16 23:59 Weight 84.5 kg - General physical appearance well developed, well nourished, moderate pain - Eyes normal ocular movement - ENT normal mucosa, atraumatic, normocephalic - Neck Neck exam: trachea midline - Respiratory normal respiratory effort, other (wheezing b/l) - Cardiovascular Cardiovascular exam: Present: RRR - Abdomen Abdomen: Present: bowel sounds present, soft, non tender - Integumentary other (subareolar skin of right breast eyrthematous, no drainage on physical exam. Noted eyrthema extending up into the LUQ of the right breast. Patient states entire breast is tender, worse with palpation of the inferior portion.) - Neurologic CN 2-12 grossly intact - Psychiatric speech is normal, memory intact - Labs 04/04/16 04:39 04/04/16 04:39 Diabetes panel 04/04/16 Range/Units 04:39 Sodium 138 (136-145) mEq/L Potassium 4.2 (3.5-4.5) mEq/L Chloride 113 H (98-109) mEq/L Carbon Dioxide 16 L (19-29) mEq/L BUN 11 (7-20) mg/dL Creatinine 1.53 H (0.57-1.11) mg/dL Glucose 135 H (70-99) mg/dL Calcium 8.6 (8.6-10.8) mg/dL AST 10 (5-34) Units/L ALT 8 (0-55) Units/L Alkaline Phosphatase 35 L (38-126) Units/L Albumin 2.8 L (3.5-5.0) g/dL Calcium panel 04/04/16 Range/Units 04:39 Calcium 8.6 (8.6-10.8) mg/dL Albumin 2.8 L (3.5-5.0) g/dL Pituitary panel 04/04/16 Range/Units 04:39 Sodium 138 (136-145) mEq/L Potassium 4.2 (3.5-4.5) mEq/L Chloride 113 H (98-109) mEq/L Carbon Dioxide 16 L (19-29) mEq/L BUN 11 (7-20) mg/dL Creatinine 1.53 H (0.57-1.11) mg/dL Glucose 135 H (70-99) mg/dL Calcium 8.6 (8.6-10.8) mg/dL Adrenal panel 04/04/16 Range/Units 04:39 Sodium 138 (136-145) mEq/L Potassium 4.2 (3.5-4.5) mEq/L Chloride 113 H (98-109) mEq/L Carbon Dioxide 16 L (19-29) mEq/L BUN 11 (7-20) mg/dL Creatinine 1.53 H (0.57-1.11) mg/dL Glucose 135 H (70-99) mg/dL Calcium 8.6 (8.6-10.8) mg/dL Total Bilirubin 0.3 (0.2-1.2) mg/dL AST 10 (5-34) Units/L ALT 8 (0-55) Units/L Alkaline Phosphatase 35 L (38-126) Units/L Albumin 2.8 L (3.5-5.0) g/dL Consult Discharge Plan - Plan Referrals: Rosy Martinez, JOSE [Primary Care Provider] -
[2016-04-04] MEDS ORDERED: *HR* HYDROmorphone (PF) 1 MG/ML SYRINGE ONE (15:55)
[2016-04-04] MEDS ORDERED: *HR* HYDROmorphone (PF) 1 MG/ML SYRINGE IVP ONE (16:00)
[2016-04-04] MEDS ORDERED: *HR* HYDROmorphone 2 MG/ML SYRINGE IVP STA (16:04)
--- NOTE | 2016-04-04 16:08 | General Surgery Procedure Note ---
Date of procedure: 04/04/16 Pre-op diagnosis: Right breast abscess Post-op diagnosis: same Procedure: After time-out was performed, a cotton tip applicator was used to open the surgical cavity. There was drainage of copious amounts of purulent, foul smelling drainage. The cavity was completely decompressed and then packed with 1 /4 inch iodoform gauze, covered with dry gauze and taped to secure. The patient tolerated this well. Complications: none Anesthesia: none Surgeon: Shari Carney Estimated blood loss (cc): 0 Pathology: none sent Condition: stable Disposition: no change
--- NOTE | 2016-04-04 17:41 | Internal Med Progress Note ---
Date of Encounter: 04/04/16 Time of Encounter: 17:38 - Assessment and plan (1) Breast abscess Current Visit: Yes Status: Acute Assessment and plan: S/P I and D patient tolerated procedure well On Abx : Vanco and Zosyn ( Day 3) tolerating well. Plan will continue same will follow surgical recommendations. (2) COPD (chronic obstructive pulmonary disease) Current Visit: Yes Status: Chronic Assessment and plan: Stable for now will continue home treatment. not on home oxygen Qualifiers: COPD type: unspecified COPD Qualified Code(s): J44.9 - Chronic obstructive pulmonary disease, unspecified (3) Diabetes mellitus Current Visit: Yes Status: Chronic Assessment and plan: Will follow POC well controlled sugar. Qualifiers: Diabetes mellitus type: type 2 Diabetes mellitus complication status: with unspecified complications Diabetes mellitus intermediate card tender insulin use: with intermediate card tender use Qualified Code(s): E11.8 - Type 2 diabetes mellitus with unspecified complications; Z79.4 - intermediate card tender (current) use of insulin (4) Hypertension Current Visit: Yes Status: Chronic Assessment and plan: Will continue home meds Qualifiers: Hypertension type: essential hypertension Qualified Code(s): I10 - Essential (primary) hypertension - Subjective Interval history: seen and examined. chart reviewed. S/P I and D of abscess Surgical input appreciated. - Constitutional Vitals: Temp Pulse Resp BP Pulse Ox 97.7 F 63 14 109/69 94 L 04/04/16 14:54 04/04/16 14:54 04/04/16 14:54 04/04/16 14:54 04/04/16 14:54 General appearance: Present: A&O X 3, no acute distress, obese, answers questions appropriately - Head Head exam: Present: atraumatic, normocephalic - Eye Eye exam: Present: PERRL, conjuntiva pink, sclera anicteric Pupils: Present: PERRL - Neck Neck exam general surgery: Present: supple, trachea midline. Absent: lymphadenopathy - Respiratory Respiratory exam: Present: CTAB. Absent: accessory muscle use, rales, rhonchi, wheezes - Cardiovascular Cardiovascular exam: Present: RRR, +S1, +S2. Absent: diastolic murmur, gallop, rubs, systolic murmur - GI/Abdominal GI/Abdominal exam: Present: normal bowel sounds, soft, no peritoneal signs. Absent: distended, tenderness - Extremities Exam Extremities exam: Present: warm, radial pulses palpable and symetrical. Absent : calf tenderness, cyanotic, pedal edema - Neurological Exam Neurological exam: Present: CN II-XII intact, oriented X3, no focal deficits. Absent: pronater drift, facial droop, speech deficit - Skin Skin exam: Present: dry, intact Internal Medicine: Result - Labs CBC & Chem 7: 04/04/16 04:39 04/04/16 04:39 Labs: Short CBC 04/04/16 Range/Units 04:39 WBC 8.3 (4.3-11.1) K/mcL Hgb 11.2 L (11.5-15.4) g/dL Hct 35.2 L (35.3-44.9) % Plt Count 260 (140-400) K/mcL Neutrophils # 4.1 (1.6-8.9) K/mcL BMP 04/04/16 04:39 Sodium 138 Potassium 4.2 Chloride 113 H Carbon Dioxide 16 L BUN 11 Creatinine 1.53 H Glucose 135 H Calcium 8.6 Liver Function 04/04/16 Range/Units 04:39 Total Bilirubin 0.3 (0.2-1.2) mg/dL AST 10 (5-34) Units/L ALT 8 (0-55) Units/L Alkaline Phosphatase 35 L (38-126) Units/L Albumin 2.8 L (3.5-5.0) g/dL - Impressions Impressions Breast Ultrasound 04/04/16 07:30 IMPRESSION: Corresponding with the right surgical biopsy site there is a complex 4 cm fluid collection with no significant hyperemia. This suggests a hematoma. BIRADS: BIRADS - CATEGORY 2 Benign, no evidence of malignancy. Normal interval follow-up is recommended in 12 months. OVERALL ASSESSMENT - BENIGN A letter of notification will be sent to the patient regarding the results. [employer] recommends annual mammograms for women 40 years and older. D/ / 04/04/2016 08:24:26 Armand Wise MD / gallo Interpreting Provider: Armand Wise MD Consult Discharge Plan - Plan Referrals: Rosy Martinez, SCHOOL PSYCHOLOGICAL EXAMINER [Primary Care Provider] -
[2016-04-04] MEDS: 0.9 % Sodium Chloride 1,000 ML IVC SCH (22:19)
[2016-04-05] MEDS: *HR* OxyCODONE/APAP 7.5/325 TABLET PO PRN ×5 (00:14→22:45)
[2016-04-05] MEDS: Vancomycin 1,250 MG in D5% in Water 250 ML IVPB SCH (01:39)
[2016-04-05] MEDS ORDERED: Aminoglycoside Consult 1 EACH MC ONE (08:05)
[2016-04-05] MEDS: Piperacillin/Tazobactam 3.375 GM in D5% in Water (Mini-Bag+) 100 ML IVPB SCH (08:37)
--- NOTE | 2016-04-05 08:37 | General Surgery Progress Note ---
Date of Encounter: 04/05/16 Time of Encounter: 07:55 - Assessment and Plan (1) Cellulitis Current Visit: Yes Status: Acute Surgical cavity opened and drained on 04/04/16. Repacked with 1/4 inch iodoform gauze today. Wound culture positive for Enterobacter cloacae Patient on Vancomycin and Zosyn, will transition to PO antibiotics. change pad daily-BID pain control supportive care Discussed with Alecia Carney CNP. Continue wound care. Follow up in 1 week. Surgery will sign off at this time thank you for involving us in this patient's care, please feel free to contact us with any questions. Qualifiers: Site of cellulitis: trunk Site of cellulitis of trunk: chest wall Qualified Code(s): L03.313 - Cellulitis of chest wall (2) CKD (chronic kidney disease) Current Visit: Yes Status: Chronic management per medicine service Qualifiers: Chronic kidney disease stage: stage 3 (moderate) Qualified Code(s): N18.3 - Chronic kidney disease, stage 3 (moderate) (3) COPD (chronic obstructive pulmonary disease) Current Visit: Yes Status: Chronic Wheezing heard on exam, no respiratory distress. Management per medicine service Qualifiers: COPD type: unspecified COPD Qualified Code(s): J44.9 - Chronic obstructive pulmonary disease, unspecified (4) Diabetes mellitus Current Visit: Yes Status: Chronic management per medicine service Qualifiers: Diabetes mellitus type: type 2 Diabetes mellitus complication status: with unspecified complications Diabetes mellitus retirement insulin use: with retirement use Qualified Code(s): E11.8 - Type 2 diabetes mellitus with unspecified complications; Z79.4 - long term care social worker (current) use of insulin (5) Hypertension Current Visit: Yes Status: Chronic management per medicine service Qualifiers: Hypertension type: essential hypertension Qualified Code(s): I10 - Essential (primary) hypertension (6) DVT prophylaxis Current Visit: Yes Status: Acute Heparin SQ Subjective Patient reports: no new complaints, still having pain, afebrile Objective Vital Signs - Last 8 Hours Temp Pulse Resp BP Pulse Ox 04/05/16 06:35 98.9 F 68 16 93/52 94 L 04/05/16 03:44 98.0 F 70 16 105/70 95 Intake and Output 04/04/16 04/05/16 04/05/16 23:59 07:59 15:59 Intake Total 2160 / 2160 550 / 550 Output Total 300 / 300 0 / 0 Balance 1860 / 1860 550 / 550 Intake: IV Fluids 1200 / 1200 350 / 350 0.9 % Sodium Chloride 1, 1000 / 1000 000 ML @ 50 mls/hr IVC . Q20H RYLEE Rx#:[id number] Zosyn 3.375 GM In 200 / 200 100 / 100 Dextrose 5% (Minibag+) 100 ML 100 ML @ 25 mls/hr IVPB Q8HR RYLEE Rx#: [id number] Vancocin 1,250 MG In 250 / 250 Dextrose 5% 250 ML @ 166. 667 mls/hr IVPB Q24H RYLEE Rx#:[id number] Oral 960 / 960 200 / 200 Output: Urine 300 / 300 0 / 0 Other: Meal Dinner Percent of Meal Consumed 25% # Voids 1 1 # Urine Diapers 1 Weight 84.5 kg Blood Glucose* 152 169 Patient Weight 04/05/16 23:59 Weight 84.5 kg - General physical appearance well developed, well nourished, moderate pain - Eyes normal ocular movement - ENT normal mucosa - Neck Neck exam: trachea midline - Respiratory normal respiratory effort, clear to auscultation - Cardiovascular Cardiovascular exam: Present: RRR - Abdomen Abdomen: Present: bowel sounds present, soft, non tender - Integumentary no rash - Neurologic CN 2-12 grossly intact - Psychiatric speech is normal, memory intact - Labs 04/05/16 09:15 04/04/16 04:39 Consult Discharge Plan - Plan Additional Instructions: Wound care-cleanse with soap and water daily in the shower and pat dry. Pack wound with 1/4 inch plain gauze packing, cover with 4x4, and tape to secure daily. Referrals: Rosy Martinez CNP [Primary Care Provider] - Shari Carney CNP [Advanced Practice Nurse] - 04/11/16 9:15 am (Hospital follow up.) Prescriptions: Amoxicillin/Clavulanate [Augmentin] 875 mg PO BIDWM 10 Days
[2016-04-05] MEDS: Nicotine 21 MG PATCH.TD24 TD SCH (08:39)
[2016-04-05] MEDS: Gabapentin 300 MG CAPSULE PO SCH ×3 (08:39→21:11)
[2016-04-05] MEDS: Topiramate 100 MG TABLET PO SCH ×2 (08:39→21:11)
[2016-04-05] MEDS: clonazePAM 1 MG TABLET PO SCH ×2 (08:39→21:11)
[2016-04-05] MEDS: *HR* Heparin 5,000 UNIT/ML VIAL SQ SCH ×3 (08:40→23:04)
[2016-04-05] MEDS: Insulin LISPRO 300 UNITS/3 ML VIAL SQ SCH ×4 (08:42→21:06)
[2016-04-05 09:41] LABS: Basophils % 0.3 %; Eosinophils # 0.4 K/mcL (0.0-0.6); Eosinophils % 4.6 %; Hematocrit 35.9 % (35.3-44.9); Hemoglobin 11.8 g/dL (11.5-15.4); Immature Granulocytes % 0.5 % (0-4); Immature Platelets 3.7 % (1.1-6.1); Lymphocytes # 2.8 K/mcL (0.6-4.6); Lymphocytes % 32.1 %; Mean Corpuscular HGB Conc 32.9 g/dL (31.6-35.5); Mean Corpuscular Hemoglobin 28.8 pg (28.0-33.3); Mean Corpuscular Volume 87.6 fL (83.0-100.0); Mean Platelet Volume 10.2 fL (9.4-12.4); Monocytes # 0.6 K/mcL (0.0-1.3); Monocytes % 7.2 %; Neutrophils # 4.8 K/mcL (1.6-8.9); Platelet Count 313 K/mcL (140-400); Red Cell Distribution Width 13.4 % (11.5-14.5); Segmented Neutrophils % 55.3 %
--- NOTE | 2016-04-05 14:30 | Internal Med Progress Note ---
Date of Encounter: 04/05/16 Time of Encounter: 09:00 - Assessment and plan (1) Breast abscess Current Visit: Yes Status: Acute Assessment and plan: S/P I and D patient tolerated procedure well On Abx : Continue to Rocephin per sensitivity. tolerating well. Plan will continue same will follow surgical recommendations. explosives worker on case for safe discharge (2) COPD (chronic obstructive pulmonary disease) Current Visit: Yes Status: Chronic Assessment and plan: Stable for now will continue home treatment. not on home oxygen Qualifiers: COPD type: unspecified COPD Qualified Code(s): J44.9 - Chronic obstructive pulmonary disease, unspecified (3) Diabetes mellitus Current Visit: Yes Status: Chronic Assessment and plan: Will follow POC well controlled sugar level. Qualifiers: Diabetes mellitus type: type 2 Diabetes mellitus complication status: with unspecified complications Diabetes mellitus mcfp insulin use: with terminal press operator use Qualified Code(s): E11.8 - Type 2 diabetes mellitus with unspecified complications; Z79.4 - longterm (current) use of insulin (4) Hypertension Current Visit: Yes Status: Chronic Assessment and plan: Will continue home meds Qualifiers: Hypertension type: essential hypertension Qualified Code(s): I10 - Essential (primary) hypertension (5) DVT prophylaxis Current Visit: Yes Status: Acute Assessment and plan: Heparin subcutaneously - Subjective Interval history: Patient is a 51-year-old female admitted for breast abscess. Her past medical history is significant for COPD, diabetes, GERD, hyperlipidemia, hypertension, migraine. I saw and examined the patient today. She is very emotional, easily tearful, complaining of pain. She had no fever, vital signs stable, no nausea, no vomiting. Did a surgery yesterday, surgical consultation on case. Change antibiotic to Rocephin per sensitivity. Continue wound care. explosives worker is on case. Patient denies domestic violence to social service manager. We will follow social works for further recommendation to achieve safe discharge. - Constitutional Vitals: Temp Pulse Resp BP Pulse Ox 98.9 F 64 16 94/59 98 04/05/16 10:09 04/05/16 10:09 04/05/16 10:09 04/05/16 10:04/05/16 10:09 General appearance: Present: A&O X 3, no acute distress, obese, answers questions appropriately - Head Head exam: Present: atraumatic, normocephalic - Eye Eye exam: Present: PERRL, conjuntiva pink, sclera anicteric Pupils: Present: PERRL - Neck Neck exam general surgery: Present: supple, trachea midline. Absent: lymphadenopathy - Respiratory Respiratory exam: Present: CTAB. Absent: accessory muscle use, rales, rhonchi, wheezes Additional comments: Right breast abscess S/P incision and drainage, well dressed. - Cardiovascular Cardiovascular exam: Present: RRR, +S1, +S2. Absent: diastolic murmur, gallop, rubs, systolic murmur - GI/Abdominal GI/Abdominal exam: Present: normal bowel sounds, soft, no peritoneal signs. Absent: distended, tenderness - Extremities Exam Extremities exam: Present: warm, radial pulses palpable and symetrical. Absent : calf tenderness, cyanotic, pedal edema - Neurological Exam Neurological exam: Present: CN II-XII intact, oriented X3, no focal deficits. Absent: pronater drift, facial droop, speech deficit - Skin Skin exam: Present: dry, intact Internal Medicine: Result - Labs CBC & Chem 7: 04/05/16 09:15 04/04/16 04:39 Labs: Short CBC 04/05/16 Range/Units 09:15 WBC 8.7 (4.3-11.1) K/mcL Hgb 11.8 (11.5-15.4) g/dL Hct 35.9 (35.3-44.9) % Plt Count 313 (140-400) K/mcL Neutrophils # 4.8 (1.6-8.9) K/mcL Consult Discharge Plan - Plan Additional Instructions: Wound care-cleanse with soap and water daily in the shower and pat dry. Pack wound with 1/4 inch plain gauze packing, cover with 4x4, and tape to secure daily. Referrals: Rosy Martinez CNP [Primary Care Provider] - Shari Carney CNP [Advanced Practice Nurse] - 04/11/16 9:15 am (Hospital follow up.) Prescriptions: Amoxicillin/Clavulanate [Augmentin] 875 mg PO BIDWM 10 Days
[2016-04-05] MEDS: *HR* HYDROmorphone 2 MG/ML SYRINGE IVP PRN (15:39)
[2016-04-05] MEDS: 0.9 % Sodium Chloride 1,000 ML IVC SCH (17:05)
[2016-04-06 06:33] LABS: Basophils # 0.1 K/mcL (0.0-0.2); Basophils % 0.5 %; Eosinophils # 0.4 K/mcL (0.0-0.6); Eosinophils % 3.9 %; Hematocrit 42.1 % (35.3-44.9); Immature Granulocytes % 0.8 % (0-4); Lymphocytes # 3.9 K/mcL (0.6-4.6); Lymphocytes % 38.7 %; Mean Corpuscular HGB Conc 32.1 g/dL (31.6-35.5); Mean Corpuscular Hemoglobin 28.4 pg (28.0-33.3); Mean Corpuscular Volume 88.4 fL (83.0-100.0); Mean Platelet Volume 10.4 fL (9.4-12.4); Monocytes # 0.8 K/mcL (0.0-1.3); Monocytes % 7.9 %; Neutrophils # 4.9 K/mcL (1.6-8.9); Platelet Count 416 K/mcL (140-400); Red Blood Count 4.76 M/mcL (3.82-4.97); Red Cell Distribution Width 13.3 % (11.5-14.5); Segmented Neutrophils % 48.2 %
[2016-04-06 06:41] LABS: Hemoglobin 13.5 g/dL (11.5-15.4)
[2016-04-06 06:44] LABS: Calcium 9.3 mg/dL (8.6-10.8); Potassium 4.3 mEq/L (3.5-4.5)
[2016-04-06] MEDS: *HR* OxyCODONE/APAP 7.5/325 TABLET PO PRN ×3 (09:27→21:59)
[2016-04-06] MEDS: *HR* Heparin 5,000 UNIT/ML VIAL SQ SCH ×3 (09:27→21:58)
[2016-04-06] MEDS: Gabapentin 300 MG CAPSULE PO SCH ×3 (09:27→21:59)
[2016-04-06] MEDS: Topiramate 100 MG TABLET PO SCH ×2 (09:28→21:58)
[2016-04-06] MEDS: clonazePAM 1 MG TABLET PO SCH ×2 (09:28→21:58)
[2016-04-06] MEDS: Nicotine 21 MG PATCH.TD24 TD SCH (09:28)
[2016-04-06] MEDS: Insulin LISPRO 300 UNITS/3 ML VIAL SQ SCH ×4 (09:29→21:58)
[2016-04-06] MEDS: *HR* HYDROmorphone 2 MG/ML SYRINGE IVP PRN ×2 (13:06→19:20)
[2016-04-06] MEDS: clonazePAM 1 MG TABLET PO PRN (15:22)
--- NOTE | 2016-04-06 16:35 | Internal Med Progress Note ---
Date of Encounter: 04/06/16 Time of Encounter: 09:00 - Assessment and plan (1) Breast abscess Current Visit: Yes Status: Acute Assessment and plan: S/P I and D patient tolerated procedure well On Abx : Continue to Rocephin per sensitivity. tolerating well. Plan will continue same will follow surgical recommendations. welfare case worker on case for safe discharge (2) COPD (chronic obstructive pulmonary disease) Current Visit: Yes Status: Chronic Assessment and plan: Stable for now will continue home treatment. not on home oxygen Qualifiers: COPD type: unspecified COPD Qualified Code(s): J44.9 - Chronic obstructive pulmonary disease, unspecified (3) Diabetes mellitus Current Visit: Yes Status: Chronic Assessment and plan: Will follow POC well controlled sugar level. Qualifiers: Diabetes mellitus type: type 2 Diabetes mellitus complication status: with unspecified complications Diabetes mellitus retirement insulin use: with intermediate card tender use Qualified Code(s): E11.8 - Type 2 diabetes mellitus with unspecified complications; Z79.4 - skilled nursing (current) use of insulin (4) Hypertension Current Visit: Yes Status: Chronic Assessment and plan: Will continue home meds Qualifiers: Hypertension type: essential hypertension Qualified Code(s): I10 - Essential (primary) hypertension (5) DVT prophylaxis Current Visit: Yes Status: Acute Assessment and plan: Heparin subcutaneously - Time Spent With Patient 25 - 35 minutes - Subjective Interval history: Patient is a 51-year-old female admitted for breast abscess. Her past medical history is significant for COPD, diabetes, GERD, hyperlipidemia, hypertension, migraine. I saw and examined the patient today. She feels less pain. She had no fever, vital signs stable, no nausea, no vomiting. Had I/D, surgical consultation on case. Change antibiotic to Rocephin per sensitivity. Continue wound care. welfare case worker is on case. Patient denies domestic violence to social work nurse. We will follow social work nurse's further recommendation to achieve safe discharge. - Constitutional Vitals: Temp Pulse Resp BP Pulse Ox 98.6 F 85 16 150/76 97 04/06/16 15:36 04/06/16 15:36 04/06/16 15:36 04/06/16 15:36 04/06/16 15:36 General appearance: Present: A&O X 3, no acute distress, obese, answers questions appropriately - Head Head exam: Present: atraumatic, normocephalic - Eye Eye exam: Present: PERRL, conjuntiva pink, sclera anicteric Pupils: Present: PERRL - Neck Neck exam general surgery: Present: supple, trachea midline. Absent: lymphadenopathy - Respiratory Respiratory exam: Present: CTAB. Absent: accessory muscle use, rales, rhonchi, wheezes Additional comments: Right breast abscess s/p I/D - Cardiovascular Cardiovascular exam: Present: RRR, +S1, +S2. Absent: diastolic murmur, gallop, rubs, systolic murmur - GI/Abdominal GI/Abdominal exam: Present: normal bowel sounds, soft, no peritoneal signs. Absent: distended, tenderness - Extremities Exam Extremities exam: Present: warm, radial pulses palpable and symetrical. Absent : calf tenderness, cyanotic, pedal edema - Neurological Exam Neurological exam: Present: CN II-XII intact, oriented X3, no focal deficits. Absent: pronater drift, facial droop, speech deficit - Skin Skin exam: Present: dry, intact Internal Medicine: Result - Labs CBC & Chem 7: 04/06/16 05:40 04/06/16 05:40 Labs: Short CBC 04/06/16 Range/Units 05:40 WBC 10.2 (4.3-11.1) K/mcL Hgb 13.5 D (11.5-15.4) g/dL Hct 42.1 (35.3-44.9) % Plt Count 416 H (140-400) K/mcL Neutrophils # 4.9 (1.6-8.9) K/mcL BMP 04/06/16 05:40 Sodium 141 Potassium 4.3 Chloride 110 H Carbon Dioxide 21 BUN 12 Creatinine 1.25 H Glucose 174 H Calcium 9.3 Consult Discharge Plan - Plan Additional Instructions: Wound care-cleanse with soap and water daily in the shower and pat dry. Pack wound with 1/4 inch plain gauze packing, cover with 4x4, and tape to secure daily. Referrals: Shari Carney PLASTICS DESIGN ENGINEER [Advanced Practice Nurse] - 04/11/16 9:15 am (Hospital follow up.) Prescriptions: Amoxicillin/Clavulanate [Augmentin] 875 mg PO BIDWM 10 Days
[2016-04-07] MEDS: *HR* HYDROmorphone 2 MG/ML SYRINGE IVP PRN (06:47)
[2016-04-07] MEDS: *HR* Heparin 5,000 UNIT/ML VIAL SQ SCH ×3 (07:45→14:16)
[2016-04-07] MEDS: Gabapentin 300 MG CAPSULE PO SCH (07:46)
[2016-04-07] MEDS: clonazePAM 1 MG TABLET PO SCH (07:47)
[2016-04-07] MEDS: Topiramate 100 MG TABLET PO SCH (07:47)
[2016-04-07] MEDS: Nicotine 21 MG PATCH.TD24 TD SCH (07:47)
[2016-04-07] MEDS: 0.9 % Sodium Chloride 1,000 ML IVC SCH (07:51)
[2016-04-07] MEDS: Insulin LISPRO 300 UNITS/3 ML VIAL SQ SCH ×2 (08:07→12:27)
--- NOTE | 2016-04-07 11:17 | Discharge Summary ---
Date of Encounter: 04/07/16 Time of Encounter: 10:00 - Discharge Diagnosis (1) Breast abscess Priority: Primary Status: Acute (2) COPD (chronic obstructive pulmonary disease) Priority: Secondary Status: Chronic Qualifiers: COPD type: unspecified COPD Qualified Code(s): J44.9 - Chronic obstructive pulmonary disease, unspecified (3) Diabetes mellitus Priority: Secondary Status: Chronic Qualifiers: Diabetes mellitus type: type 2 Diabetes mellitus complication status: with unspecified complications Diabetes mellitus moth exterminator insulin use: with snf use Qualified Code(s): E11.8 - Type 2 diabetes mellitus with unspecified complications; Z79.4 - [facility] (current) use of insulin (4) Hypertension Priority: Secondary Status: Chronic Qualifiers: Hypertension type: essential hypertension Qualified Code(s): I10 - Essential (primary) hypertension (5) DVT prophylaxis Priority: Secondary Status: Acute - Discharge Medications Prescriptions: Amoxicillin/Clavulanate [Augmentin] 875 mg PO BIDWM 10 Days Home Medications: Oxybutynin [Ditropan] 15 mg PO DAILY 10/31/14 [History] Atorvastatin [Lipitor] 20 mg PO DAILY 02/01/16 [History] Estradiol [Estrace] 1 mg PO DAILY 02/01/16 [History] HydrOXYzine Pamoate [Vistaril] 25 mg PO Q8H 02/01/16 [History] Lurasidone [Latuda] 40 mg PO DAILY 02/01/16 [History] Metoprolol [Lopressor] 12.5 mg PO BID 02/01/16 [History] SUMAtriptan [Imitrex] 50 mg PO DAILY PRN 02/01/16 [History] ClonazePAM [Klonopin] 1 mg PO BID 03/18/16 [History] Duloxetine [Cymbalta] 20 mg PO BID 03/18/16 [History] Gabapentin [Neurontin] 600 mg PO TID 03/18/16 [History] Loratadine [Allergy Relief] 10 mg PO DAILY 03/18/16 [History] Nitroglycerin [Nitrostat] 0.4 mg SL PRN PRN 03/18/16 [History] Nut.tx.glucose Intolerance,Soy [Glucerna] 1 each PO TIDWM 03/18/16 [History] Omeprazole [PriLOSEC] 20 mg PO DAILY 03/18/16 [History] Spironolactone [Aldactone] 100 mg PO DAILY 03/18/16 [History] Albuterol Sulfate [Proair Hfa] 2 puff IH Q6H PRN 04/03/16 [History] Aspirin [Lo-Dose Aspirin EC] 81 mg PO DAILY 04/03/16 [History] Budesonide/Formoterol 160/4.5 [Symbicort 160/4.5] 2 puff IH BID 04/03/16 [ History] Calcium Carbonate/Vitamin D3 [Oyster Shell Calcium-Vit D Tab] 1 tab PO BID 04/03 [History] Insulin ASPART [NovoLOG] 2 - 12 unit SQ TIDWM 04/03/16 [History] Insulin Glargine,Hum.rec.anlog [Lantus Solostar] 40 unit SQ HS 04/03/16 [History ] Lipase/Protease/Amylase [Guillermina Dr 24,000 Units Capsule] 1 cap PO QID 04/03/16 [ History] Metformin [Glucophage] 1,000 mg PO BID 04/03/16 [History] Topiramate [Topamax] 200 mg PO BID 04/03/16 [History] Trazodone HCl 150 mg PO HS 04/03/16 [History] Amoxicillin/Clavulanate [Augmentin] 875 mg PO BIDWM 10 Days 04/05/16 [Rx] Allergies/Adverse Reactions: Allergies acetaminophen [From Tylenol-Codeine #3] Allergy (Verified 04/03/16 17:04) Anaphylaxis Bleach (Sodium Hypochlorite) Allergy (Verified 04/03/16 17:04) Hives celecoxib [From Celebrex] Allergy (Verified 10/31/14 19:33) Rash codeine [From Tylenol-Codeine #3] Allergy (Verified 04/03/16 17:04) Anaphylaxis divalproex sodium [From Depakote] Allergy (Verified 10/31/14 19:33) Rash phenytoin [From Dilantin] Allergy (Verified 10/31/14 19:33) Rash [place] Allergy (Verified 01/27/16 16:00) Rash cranberry Adverse Reaction (Verified 04/03/16 17:04) Vomiting IVP DYE Allergy (Uncoded 10/31/14 19:33) Rash PINE-KRYSTEN Allergy (Uncoded 04/03/16 17:04) Rash Date of admission: 04/03/16 00:28 Primary care physician: Rosy Martinez CNP Consults: 04/03/16 01:47 Consult to Nutrition [CONS] Routine Comment: Consulting Provider: NUTRITION Reason for Dietary Consult: Other Consult to Dough Scaler And Mixer [CONS] Routine Reason for SW Consult: Home care 04/03/16 09:32 Consult to Surgery [CONS] Routine Consulting Provider: [facility] Reason for Consult: ?breast abscess. Call Completed: Yes 04/05/16 15:49 Consult to Wound Care [CONS] Stat Reason for Consult: diabetic ulcers 4th and 5th toe. Time Notified: 16:50 Call Completed: Yes Discharging clinician: John Bee Anticipated date of discharge: 04/07/16 - Patient Status Disposition: Home Health Service Condition: Fair Functional capacity at discharge: independent ambulation Overall status at discharge: patient is progressing back to baseline - Discharge Instructions Follow Up With: Shari Carney CNP [Advanced Practice Nurse] - 04/11/16 9:15 am (Hospital follow up.) Additional Instructions: Wound care-cleanse with soap and water daily in the shower and pat dry. Pack wound with 1/4 inch plain gauze packing, cover with 4x4, and tape to secure daily. - Diet and Activity Activity: as per physical therapy Diet: diabetic diet Interval History: Ms. Dent is a 51 year old female with PMH of DM, HTN, Epilepsy, GERD, migraine, Depression, anxiety, bipolar dx who is s/p right breast cyst excision on 03/18/16 presents to the ER for evaluation of drainage from the right breast at the site of the resected cyst. Pt states she forgot about her follow up appointment with surgical clinic which was a couple of days ago. States she noticed drainage at the surgical site starting around 8pm and reports of being a significant amount, foul smelling discharge which prompted her visit to the ER. In the ER initially the ER physician was not able to notice any discharge, however during his re-evaluation he noted a purulent discharge which was sent for cultures. Patient reports of having diabetic foot ulcers and underwent surgical resection of her toes by Dr. Figueroa in January 2016. During my evaluation patient is sitting comfortably in bed, reports of adequate pain relief with the medication she received in the ER. With mild palpation, patient is still have purulent discharge from the right breast at the surgical site. She denies any other discomfort at this time. Hospital course: Ms. Dent is a 51 year old female admitted for right side breast abscess. She was treated with antibiotics, surgical consult was called and saw patient. I and D has been done by surgeon. After treatment, patient WBC is getting down. Wound culture shows Enterobacter Cloacae. Blood culture negative. Patient will discharge home with home health. Follow-up with surgeon as outpatient. I Saw and examined the patient today. She is awake, alert, oriented 3. Has only minimal pain. In no acute distress. No fever. Vitals are stable. Patient was discharged home with home health. Antibiotics by mouth has been prescribed by surgery. Time spent discussing smoking cessation with patient: more than 10 minutes - Time Spent with Patient Total time spent providing and/or coordinating discharge services: 40 minutes Greater than 30 minutes - Constitutional Vitals: Temp Pulse Resp BP Pulse Ox 98.1 F 76 18 114/74 94 L 04/07/16 07:04/07/16 07:17 04/07/16 07:17 04/07/16 07:17 04/07/16 07:17 General appearance: Present: A&O X 3, no acute distress, obese, answers questions appropriately - Head Head exam: Present: atraumatic, normocephalic - Eye Eye exam: Present: PERRL, conjuntiva pink, sclera anicteric Pupils: Present: PERRL - Neck Neck exam general surgery: Present: supple, trachea midline. Absent: lymphadenopathy - Respiratory Respiratory exam: Present: CTAB. Absent: accessory muscle use, rales, rhonchi, wheezes Additional comments: Right breast abscess after I&D, well dressed - Cardiovascular Cardiovascular exam: Present: RRR, +S1, +S2. Absent: diastolic murmur, gallop, rubs, systolic murmur - GI/Abdominal GI/Abdominal exam: Present: normal bowel sounds, soft, no peritoneal signs. Absent: distended, tenderness - Extremities Exam Extremities exam: Present: warm, radial pulses palpable and symetrical. Absent : calf tenderness, cyanotic, pedal edema - Neurological Exam Neurological exam: Present: CN II-XII intact, oriented X3, no focal deficits. Absent: pronater drift, facial droop, speech deficit - Skin Skin exam: Present: dry, intact
[2016-04-07 11:27] VITALS: BP 112/72
--- NOTE | 2016-04-07 11:30 | Physician Discharge Referral ---
Home Health/Hosp Referral Info Transfer to: Home Health Provider in Charge Post Discharge: PCP - Diagnosis (1) Breast abscess Status: Acute (2) COPD (chronic obstructive pulmonary disease) Status: Chronic (3) Diabetes mellitus Status: Chronic (4) Hypertension Status: Chronic (5) DVT prophylaxis Status: Acute - Respiratory Orders Smoking Cessation: Smoking cessation has been advised. For more information, call the [place] Tobacco Quit Line at 5-602-JESC-NOW. - Dressing/Wound Care Site: Right breast Type of Dressing/Treatments w/Frequency: Per surgery instruction: Wound care-cleanse with soap and water daily in the shower and pat dry. Pack wound with 1/4 inch plain gauze packing, cover with 4x4 , and tape to secure daily. - Diet/Nutrition Diet/Nutrition Orders: No Concentrated Sweets (Diabetic diet) - Activity Activity Orders: Ambulate - Services Needed Following services are medically necessary services: Nursing, Home Health Aide, Physical Therapy, Occupational Therapy - Transfer Medications Prescriptions: Amoxicillin/Clavulanate [Augmentin] 875 mg PO BIDWM 10 Days Home Medications: Oxybutynin [Ditropan] 15 mg PO DAILY 10/31/14 [History] Atorvastatin [Lipitor] 20 mg PO DAILY 02/01/16 [History] Estradiol [Estrace] 1 mg PO DAILY 02/01/16 [History] HydrOXYzine Pamoate [Vistaril] 25 mg PO Q8H 02/01/16 [History] Lurasidone [Latuda] 40 mg PO DAILY 02/01/16 [History] Metoprolol [Lopressor] 12.5 mg PO BID 02/01/16 [History] SUMAtriptan [Imitrex] 50 mg PO DAILY PRN 02/01/16 [History] ClonazePAM [Klonopin] 1 mg PO BID 03/18/16 [History] Duloxetine [Cymbalta] 20 mg PO BID 03/18/16 [History] Gabapentin [Neurontin] 600 mg PO TID 03/18/16 [History] Loratadine [Allergy Relief] 10 mg PO DAILY 03/18/16 [History] Nitroglycerin [Nitrostat] 0.4 mg SL PRN PRN 03/18/16 [History] Nut.tx.glucose Intolerance,Soy [Glucerna] 1 each PO TIDWM 03/18/16 [History] Omeprazole [PriLOSEC] 20 mg PO DAILY 03/18/16 [History] Spironolactone [Aldactone] 100 mg PO DAILY 03/18/16 [History] Albuterol Sulfate [Proair Hfa] 2 puff IH Q6H PRN 04/03/16 [History] Aspirin [Lo-Dose Aspirin EC] 81 mg PO DAILY 04/03/16 [History] Budesonide/Formoterol 160/4.5 [Symbicort 160/4.5] 2 puff IH BID 04/03/16 [ History] Calcium Carbonate/Vitamin D3 [Oyster Shell Calcium-Vit D Tab] 1 tab PO BID 04/03 [History] Insulin ASPART [NovoLOG] 2 - 12 unit SQ TIDWM 04/03/16 [History] Insulin Glargine,Hum.rec.anlog [Lantus Solostar] 40 unit SQ HS 04/03/16 [History ] Lipase/Protease/Amylase [Guillermina Dr 24,000 Units Capsule] 1 cap PO QID 04/03/16 [ History] Metformin [Glucophage] 1,000 mg PO BID 04/03/16 [History] Topiramate [Topamax] 200 mg PO BID 04/03/16 [History] Trazodone HCl 150 mg PO HS 04/03/16 [History] Amoxicillin/Clavulanate [Augmentin] 875 mg PO BIDWM 10 Days 04/05/16 [Rx] Allergies/Adverse Reactions: Allergies acetaminophen [From Tylenol-Codeine #3] Allergy (Verified 04/03/16 17:04) Anaphylaxis Bleach (Sodium Hypochlorite) Allergy (Verified 04/03/16 17:04) Hives celecoxib [From Celebrex] Allergy (Verified 10/31/14 19:33) Rash codeine [From Tylenol-Codeine #3] Allergy (Verified 04/03/16 17:04) Anaphylaxis divalproex sodium [From Depakote] Allergy (Verified 10/31/14 19:33) Rash phenytoin [From Dilantin] Allergy (Verified 10/31/14 19:33) Rash [place] Allergy (Verified 01/27/16 16:00) Rash cranberry Adverse Reaction (Verified 04/03/16 17:04) Vomiting IVP DYE Allergy (Uncoded 10/31/14 19:33) Rash PINE-KRYSTEN Allergy (Uncoded 04/03/16 17:04) Rash Certification: Further, I certify that my clinical findings support that this patient is homebound (i.e. absences from home require considerable and taxing effort and are for medical reasons or temple services or infrequently or short duration when for other reasons) because: Homebound Reason: Patient requires assistance of a person or device to safely leave home Attestation: My signature below is to certify that this patient is under my care and that I, or nurse practitioner, or a physician's floral assistant working with me, has a face-to -face encounter with this patient.
[2016-04-07] MEDS ORDERED: Insulin DETEMIR 100 UNIT/ML X5UNITS SQ ONE (11:40)
[2016-04-07] MEDS: *HR* OxyCODONE/APAP 7.5/325 TABLET PO PRN (14:19)
[2016-04-08] MEDS ORDERED: levoFLOXacin 500 MG TABLET PO SCH (09:00)
== END 2016-04-07 15:11 | disposition home health service (06) ==
LOC: EMEROO 21:54 → 3ANU 21:54
PROVIDERS: ADMIT Internal Medicine; ATTEND Internal Medicine

== ENCOUNTER 2016-09-29 17:13 | Inpatient (IN) ==
--- NOTE | 2016-09-29 18:52 | Emergency Department Note ---
START Narrative - START START: I examined this patient and my medical decision-making was reviewed with the VE TEACHER/PA/Advanced Practice Nurse/Resident Physician. I agree with the documented findings, disposition and treatment plan as described except to the extent set forth below. Perk up for cellulitis versus osteomyelitis of the right distal foot. We will check labs and obtain plain films.
--- NOTE | 2016-09-29 18:54 | Emergency Department Note ---
START Narrative - START START: 51-year-old female with diabetic neuropathy presents with a chronic diabetic ulcer to the right foot. Been present for past 4 months. She follows that the wound care clinic. Today she was unable to make her appointment due to her transportation. She was however able to go to her primary care provider Maximus Miller. Was recommended come here for further evaluation and possible surgery. She has not seen a coater operator insulation board but does follow at wound care clinic in [place]. On exam she has good peripheral pulses in capillary refill. She has a 2 x 2 cm desquamation of her lateral right foot involving the 3rd 4th and 5th digit. She describes increase erythema involving the 2nd and big toe as well. Will get a x-ray of the foot as well as a CBC in the [facility]. A lactate and inflammatory markers are ordered. Patient will be signed up to nighttime physician
[2016-09-29 19:21] LABS: Basophils # 0.1 K/mcL (0.0-0.2); Basophils % 0.4 %; Eosinophils # 0.4 K/mcL (0.0-0.6); Eosinophils % 3.1 %; Hematocrit 40.1 % (35.3-44.9); Hemoglobin 12.6 g/dL (11.5-15.4); Immature Platelets 4.6 % (1.1-6.1); Lymphocytes # 2.7 K/mcL (0.6-4.6); Lymphocytes % 19.9 %; Mean Corpuscular HGB Conc 31.4 g/dL (31.6-35.5); Mean Corpuscular Hemoglobin 28.1 pg (28.0-33.3); Mean Corpuscular Volume 89.3 fL (83.0-100.0); Mean Platelet Volume 10.2 fL (9.4-12.4); Monocytes # 0.8 K/mcL (0.0-1.3); Monocytes % 5.9 %; Neutrophils # 9.5 K/mcL (1.6-8.9); Platelet Count 394 K/mcL (140-400); Red Blood Count 4.49 M/mcL (3.82-4.97); Red Cell Distribution Width 14.8 % (11.5-14.5); Segmented Neutrophils % 69.7 %
[2016-09-29] MEDS ORDERED: *HR* HYDROmorphone (PF) 1 MG/ML SYRINGE IM ONE (19:25)
[2016-09-29 19:32] LABS: Calcium 9.6 mg/dL (8.6-10.8); Potassium 4.5 mEq/L (3.5-4.5)
--- NOTE | 2016-09-29 20:24 | Emergency Department Note ---
Disposition Clinical Impression: Cellulitis, Diabetes mellitus, CKD (chronic kidney disease) Disposition: Admitted As Inpatient Condition: Good Time of Disposition: 21:52 Extremity Problem HPI - General Chief complaint: ED Extremity Problem,Nontraumatic Stated complaint: right foot pain// diabetic Time Seen by Provider: 09/29/16 18:35 Source: patient Limitations: no limitations Nursing Notes Reviewed: Yes Vital Signs Reviewed: Yes - History of Present Illness HPI Narrative: 51-year-old female presenting to the ED with complaints of an ulcer to her right foot. History of diabetes, very poorly compliant with medications. Has not seen wound care and several months. Nurse practitioner sent her over for further evaluation. She has missed her last 2 appointments with wound care and thinks it is getting worse. Essentially, she has failed outpatient management. As she was on Bactrim 3 weeks ago without improvement. No fevers, but is fatigued. States that the ulcer seemed to be getting bigger and that her foot feels swollen. Pain Scale: 10 - Related Data Home Medications Medication Instructions Recorded Confirmed Metoprolol [Lopressor] 25 mg PO DAILY 02/01/16 09/29/16 Omeprazole [PriLOSEC] 20 mg PO BID 03/18/16 09/29/16 clonazePAM [Klonopin] 1 mg PO BID PRN 03/18/16 09/29/16 Insulin ASPART [NovoLOG] 15 unit SQ BIDWM 04/03/16 09/29/16 Insulin Glargine,Hum.rec.anlog 40 unit SQ HS 04/03/16 09/29/16 [Lantus Solostar] Lipase/Protease/Amylase [Creon Dr 2 cap PO TIDWM 04/03/16 09/29/16 24,000 Units Capsule] Topiramate [Topamax] 200 mg PO BID 04/03/16 09/29/16 Trazodone HCl 150 mg PO HS 04/03/16 09/29/16 metFORMIN [Glucophage] 1,000 mg PO BIDWM 04/03/16 09/29/16 Albuterol Neb [Proventil Neb] 2.5 mg IH AD 09/29/16 09/29/16 Albuterol Sulfate [Proair Hfa] 2 puff IH Q4-6H PRN 09/29/16 09/29/16 Atorvastatin Calcium [Lipitor] 20 mg PO HS 09/29/16 09/29/16 Budesonide/Formoterol 160/4.5 2 puff IH BID 09/29/16 09/29/16 [Symbicort 160/4.5] Calcium Carbonate/Vitamin D3 1 each PO BID 09/29/16 09/29/16 [Oyster Shell Calcium-Vit D Tab] DULoxetine [Cymbalta] 20 mg PO BID 09/29/16 09/29/16 Diclofenac Sodium [Voltaren] 1 appl TP BID 09/29/16 09/29/16 Estradiol [Estrace] 1 mg PO DAILY 09/29/16 09/29/16 Fluticasone Propionate Nasal 50 mcg NS DAILY 09/29/16 09/29/16 [Flonase] Gabapentin [Neurontin] 800 mg PO QID 09/29/16 09/29/16 Levothyroxine [Synthroid] 25 mcg PO 0630 09/29/16 09/29/16 Lidocaine 4% CRM (LMX) [Lmx 4] 1 appl TP BID PRN 09/29/16 09/29/16 Loratadine [Claritin] 10 mg PO DAILY 09/29/16 09/29/16 Magnesium Oxide [Magnesium] 400 mg PO DAILY 09/29/16 09/29/16 Oxybutynin Chloride [Ditropan Xl] 15 mg PO DAILY 09/29/16 09/29/16 SUMAtriptan Succinate [Imitrex] 100 mg PO DAILY PRN 09/29/16 09/29/16 Spironolactone [Aldactone] 100 mg PO DAILY 09/29/16 09/29/16 hydrOXYzine pamoate [HydrOXYzine 25 mg PO Q6H PRN 09/29/16 09/29/16 Pamoate] Allergies Allergy/AdvReac Type Severity Reaction Status Date / Time acetaminophen Allergy Anaphylaxis Verified 04/03/16 17:04 [From Tylenol-Codeine #3] Bleach (Sodium Hypochlorite) Allergy Hives Verified 04/03/16 17:04 celecoxib [From Celebrex] Allergy Rash Verified 10/31/14 19:33 codeine Allergy Anaphylaxis Verified 04/03/16 17:04 [From Tylenol-Codeine #3] divalproex sodium Allergy Rash Verified 10/31/14 19:33 [From Depakote] phenytoin [From Dilantin] Allergy Rash Verified 10/31/14 19:33 [place] Allergy Rash Verified 01/27/16 16:00 cranberry AdvReac Vomiting Verified 04/03/16 17:04 IVP DYE Allergy Rash Uncoded 10/31/14 19:33 PINE-KRYSTEN Allergy Rash Uncoded 04/03/16 17:04 Constitutional: Denies: fever Cardiovascular: Denies: chest pain Gastrointestinal: Denies: abdominal pain, nausea Musculoskeletal: Denies: back pain Integumentary: Reports: as per HPI (wound) Neurological: Denies: headache Endocrine: Reports: fatigue Past Medical History - Past Medical History Attestation: Yes The following information was validated with the patient. Source: patient, old records reviewed Medical history: Reports: COPD, diabetes, GERD, hyperlipidemia, hypertension, liver disease, migraine, other Surgical history: Reports: appendectomy, , cholecystectomy, hysterectomy, orthopedic, other Psychiatric history: Reports: anxiety, bipolar, depression NIGHT TIME NANNY history: Reports: non-contributory - Social History Smoking Status: Current every day smoker Smokeless Tobacco Status: No Alcohol use: Reports: none Drug use: Reports: marijuana Physical Exam - General Limitations: no limitations General appearance: alert, in no apparent distress - Head Head exam: atraumatic, normocephalic, normal inspection - Respiratory Respiratory exam: Present: normal lung sounds bilaterally - Cardiovascular Cardiovascular exam: Present: regular rate, normal rhythm, normal heart sounds - Abdominal Exam Abdominal exam: Present: soft, Non-Tender. Absent: tenderness, distention, guarding, rebound, rigidity - Expanded Lower Extremity Exam Foot/toe exam: Present: other (Patient has a 3 cm ulcer to the dorsum of her right foot involving the third through fifth MTPs and metatarsals. There is no exposed bone, but subcutaneous fat is exposed. Some associated swelling and erythema. No crepitus. No necrosis. Normal cap refill, decreased sensation, but baseline for patient) Course Course Narrative: 51-year-old female presenting with an advancing ulcer to her right foot. Diabetes, poorly compliant. Little to no follow-up. I think even if the patient's lab work is normal that she will still need to be admitted for wound Evaluation. Patient agreeable with plan - Reevaluation(s) Reevaluation #1: Lab work is back. X-rays consistent with cellulitis. Low concern for osteo- due to low inflammatory markers and no lytic lesions on x-ray. We will start her on antibiotics and admitted to the hospitalist service. She also has some associated renal insufficiency that is worse than her baseline. Could be due to dehydration could be reaction to recent failed antibiotics. Overall, she looks well and is stable. Vital Signs Temperature 97.9 F 09/29/16 17:26 Pulse Rate 73 09/29/16 17:26 Respiratory Rate 18 09/29/16 17:26 Blood Pressure 137/82 09/29/16 17:26 O2 Sat by Pulse Oximetry 99 09/29/16 17:26 Temperature 97.9 F 09/29/16 17:26 Pulse Rate 85 09/29/16 20:12 Respiratory Rate 18 09/29/16 21:54 Blood Pressure 159/95 09/29/16 21:54 O2 Sat by Pulse Oximetry 100 09/29/16 20:12 Oxygen Delivery Oxygen Delivery Room Air Extremity Problem, Nontraumati - Lab Data Result diagrams: 09/29/16 19:12 09/29/16 19:12 Lab Results 09/29/16 09/29/16 09/29/16 Range/Units 19:12 19:12 19:12 WBC 13.6 H (4.3-11.1) K/mcL RBC 4.49 (3.82-4.97) M/mcL Hgb 12.6 (11.5-15.4) g/dL Hct 40.1 (35.3-44.9) % MCV 89.3 (83.0-100.0) fL MCH 28.1 (28.0-33.3) pg MCHC 31.4 L (31.6-35.5) g/dL RDW 14.8 H (11.5-14.5) % Plt Count 394 (140-400) K/mcL MPV 10.2 (9.4-12.4) fL Immature Gran % 1.0 (0-4) % Seg Neutrophils % 69.7 % Lymphocytes % 19.9 % Monocytes % 5.9 % Eosinophils % 3.1 % Basophils % 0.4 % Neutrophils # 9.5 H (1.6-8.9) K/mcL Lymphocytes # 2.7 (0.6-4.6) K/mcL Monocytes # 0.8 (0.0-1.3) K/mcL Eosinophils # 0.4 (0.0-0.6) K/mcL Basophils # 0.1 (0.0-0.2) K/mcL Immature Plt Fraction 4.6 (1.1-6.1) % ESR 25 H (0-15) mm/hr Sodium 135 L (136-145) mEq/L Potassium 4.5 (3.5-4.5) mEq/L Chloride 105 (98-109) mEq/L Carbon Dioxide 18 L (19-29) mEq/L BUN 16 (7-20) mg/dL Creatinine 2.02 H (0.57-1.11) mg/dL Est GFR ( Amer) 32 L (> 60) Est GFR (Non-Af Amer) 26 L (> 60) BUN/Creatinine Ratio 8 (6-26) Glucose 107 H (70-99) mg/dL Calculated Osmolality 282 (280-300) Lactic Acid (0.5-2.2) mmol/L Calcium 9.6 (8.6-10.8) mg/dL C-Reactive Protein 2 (Less than 5) mg/L 09/29/16 Range/Units 19:12 WBC (4.3-11.1) K/mcL RBC (3.82-4.97) M/mcL Hgb (11.5-15.4) g/dL Hct (35.3-44.9) % MCV (83.0-100.0) fL MCH (28.0-33.3) pg MCHC (31.6-35.5) g/dL RDW (11.5-14.5) % Plt Count (140-400) K/mcL MPV (9.4-12.4) fL Immature Gran % (0-4) % Seg Neutrophils % % Lymphocytes % % Monocytes % % Eosinophils % % Basophils % % Neutrophils # (1.6-8.9) K/mcL Lymphocytes # (0.6-4.6) K/mcL Monocytes # (0.0-1.3) K/mcL Eosinophils # (0.0-0.6) K/mcL Basophils # (0.0-0.2) K/mcL Immature Plt Fraction (1.1-6.1) % ESR (0-15) mm/hr Sodium (136-145) mEq/L Potassium (3.5-4.5) mEq/L Chloride (98-109) mEq/L Carbon Dioxide (19-29) mEq/L BUN (7-20) mg/dL Creatinine (0.57-1.11) mg/dL Est GFR ( Amer) (> 60) Est GFR (Non-Af Amer) (> 60) BUN/Creatinine Ratio (6-26) Glucose (70-99) mg/dL Calculated Osmolality (280-300) Lactic Acid 1.5 (0.5-2.2) mmol/L Calcium (8.6-10.8) mg/dL C-Reactive Protein (Less than 5) mg/L Attestation Statement - Attestation Attestation: I, Bowen Stevens, examined this patient and my medical decision-making was reviewed with the NETWORK SECURITY OFFICER/PA/Advanced Practice Nurse/Resident Physician. I agree with the documented findings, disposition and treatment plan as described except to the extent set forth below. 51-year-old female received in sign out at the start of my shift pending laboratory evaluation and imaging. Patient has been treated for a right dorsal foot wound for multiple months. Patient has not been seen by wound care however in the past month as she has missed multiple appointments. Patient states she has been unable to ambulate without pain to the right forefoot over the past 3 weeks. She states that she has used multiple antibiotics in the past however she has not been on them over the past month. Patient denies fever , chills, nausea, vomiting, diarrhea. As a mild leukocytosis however she is afebrile and has mild elevation of the other inflammatory markers. X-ray of the right foot does not show obvious evidence of acute osteomyelitis or gas within the soft tissues. Patient was started on antibiotics in emergency Department and she will be admitted to the hospital for further care and evaluation of acute infected ulceration in the setting of diabetes with poor follow-up.
[2016-09-29] MEDS ORDERED: Vancomycin 1,000 MG in D5% in Water 250 ML IVPB ONE (20:49)
[2016-09-29] MEDS ORDERED: Piperacillin/Tazobactam 3.375 GM in D5% in Water (Mini-Bag+) 100 ML IVPB ONE (20:49)
[2016-09-29] MEDS ORDERED: *HR* LORazepam 2 MG/ML VIAL IVP PRN (22:35)
[2016-09-29] MEDS ORDERED: Naloxone 0.4 MG/ML INJ IVP PRN (22:36)
[2016-09-29] MEDS ORDERED: hydrOXYzine pamoate 25 MG CAPSULE PO PRN (22:39)
[2016-09-29] MEDS ORDERED: *HR* Dextrose 50 % in Water (Syg) 50 ML SYRINGE IVP PRN (22:45)
[2016-09-29] MEDS ORDERED: Dextrose Gel 15 GM PO PRN ×2 (22:45)
[2016-09-29] MEDS ORDERED: D5% in Water 1,000 ML IVC PRN (22:45)
[2016-09-29] MEDS ORDERED: Acetaminophen 325 MG TABLET PO PRN (22:59)
[2016-09-29] MEDS ORDERED: Vancomycin 1,250 MG in D5% in Water 250 ML IVPB SCH (23:00)
--- NOTE | 2016-09-29 23:13 | Internal Med History&Physical ---
Date of Encounter: 09/29/16 Time of Encounter: 23:12 Assessment and Plan (1) Ischemic ulcer of right foot with fat layer exposed Current visit: No Status: Acute Patient reports ulcer has been there for 6 months and she has missed recent appointments with the wound care clinic. She feels the ulcer has been getting bigger, and has more surrounding swelling and redness. Xray of right foot shows soft tissue swelling along lateral aspect of forefoot suggesting cellulitis. No soft tissue gas. No evidence of osteomylitis. Vanc and zosyn IVPB [place] and dilaudid PRN for pain consult to wound care consult to podiatry (will need to be called in the morning) NPO after midnight in case of need for procedure. (2) Type 2 diabetes mellitus Current visit: Yes Status: Acute Check Hgb A1c diabetic diet check blood sugars ACHS Levemir 20u HS as patient is NPO after midnight for possible procedure (home dose is 40u) sliding scale correction dose ACHS hypoglycemic protocol. Qualifiers: Diabetes mellitus complication status: with skin complications Diabetes mellitus complication detail: with foot ulcer Diabetes mellitus mcfp insulin use: with terminal worker use Qualified Code(s): E11.621 - Type 2 diabetes mellitus with foot ulcer; L97.509 - Non-pressure chronic ulcer of other part of unspecified foot with unspecified severity; Z79.4 - group home (current) use of insulin (3) Observed seizure-like activity Current visit: Yes Status: Acute Patient reports history of seizure disorder and is on Topamax. On arrival to the floor, patient had seizure like activity observed by staff. She had mild post-ictal confusion. Seizure precautions Ativan 1mg IVP PRN for seizure activity continue home dose of topamax. (4) Seizure disorder Current visit: Yes Status: Chronic continue home dose of topamax. (5) Cigarette smoker Current visit: Yes Status: Chronic Patient smokes 1PPD. Encouraged smoking cessation. Nicotine patch and smoking cessation education ordered. (6) COPD (chronic obstructive pulmonary disease) Current visit: Yes Status: Chronic Not in acute exacerbation. Continue home doses of Symbicort and albuterol. Qualifiers: COPD type: unspecified COPD Qualified Code(s): J44.9 - Chronic obstructive pulmonary disease, unspecified (7) DVT prophylaxis Current visit: No Status: Acute heparin 5000u SQ TID Internal Medicine - H&P: HPI Chief complaint: foot ulcer Admitted From: Emergency Dept Plans for Post Hospital Care: Home History of present illness: Ms. Dent is a 51 year old female with HTN, HLD, COPD, GERD, Type 2 diabetes , seizure disorder, bipolar disorder presented to the ED today with worsening diabetic foot ulcer of right foot. Patient reports she has had the foot ulcer for the last 6 months, but has noticed recent wound clinic appointments. She had an appointment today with another provider, who sent the patient to the emergency department with concern for worsening ulcer. Patient also reporting headache, shortness of breath at her baseline with COPD, occasional nausea and vomiting, chills and sweats. Patient denies chest pain or palpitations. Evaluation in the emergency department revealed elevated white blood cell count of 13.6. KAYLAN with creatinine of 2.02 up from previous value of 1.62. Foot x- ray showed soft tissue swelling along the lateral aspect forefoot suggesting cellulitis, no soft tissue gas and no evidence of osteomyelitis. Upon patient' s arrival to the floor, patient had seizure activity witnessed by staff, with mild postictal confusion. Patient reports she does take medication for seizures. On exam, patient alert and oriented, in no acute distress. Heart has regular rate and rhythm lungs are clear bilaterally to auscultation. There is an ulcer to the dorsum of her right foot involving the third through fifth MTPs and metatarsals. There is no exposed bone, but subcutaneous fat is exposed. There is surrounding swelling and erythema. Normal cap refill, decreased sensation at baseline for patient. Past Med Surg Social Fam HX - Past Medical History Medical history: COPD, diabetes, GERD, hyperlipidemia, hypertension, liver disease, migraine, seizures, other Psychiatric history: anxiety, bipolar, depression - Past Surgical History Surgical History: appendectomy, , cholecystectomy, hysterectomy, orthopedic, other - Social History Smoking Status: Current every day smoker Packs per day: 1 Smokeless Tobacco Status: No Alcohol use: none Drug use: marijuana - Family History Mother Living Status: Hx Family Cardiac Disorders: Yes (Heart attack) Hx Family Respiratory Disorders: Yes (copd) Hx Family Cancer: Yes (breast cancer) Hx Family Endocrine Disorder: Yes (Diabetes) Internal Medicine - H&P: Meds Metoprolol [Lopressor] 25 mg PO DAILY 02/01/16 [History] Omeprazole [PriLOSEC] 20 mg PO BID 03/18/16 [History] clonazePAM [Klonopin] 1 mg PO BID PRN 03/18/16 [History] Insulin ASPART [NovoLOG] 15 unit SQ BIDWM 04/03/16 [History] Insulin Glargine,Hum.rec.anlog [Lantus Solostar] 40 unit SQ HS 04/03/16 [History ] Lipase/Protease/Amylase [Guillermina Aguiar 24,000 Units Capsule] 2 cap PO TIDWM 04/03/16 [History] Topiramate [Topamax] 200 mg PO BID 04/03/16 [History] Trazodone HCl 150 mg PO HS 04/03/16 [History] metFORMIN [Glucophage] 1,000 mg PO BIDWM 04/03/16 [History] Albuterol Neb [Proventil Neb] 2.5 mg IH AD 09/29/16 [History] Albuterol Sulfate [Proair Hfa] 2 puff IH Q4-6H PRN 09/29/16 [History] Atorvastatin Calcium [Lipitor] 20 mg PO HS 09/29/16 [History] Budesonide/Formoterol 160/4.5 [Symbicort 160/4.5] 2 puff IH BID 09/29/16 [ History] Calcium Carbonate/Vitamin D3 [Oyster Shell Calcium-Vit D Tab] 1 each PO BID [History] DULoxetine [Cymbalta] 20 mg PO BID 09/29/16 [History] Diclofenac Sodium [Voltaren] 1 appl TP BID 09/29/16 [History] Estradiol [Estrace] 1 mg PO DAILY 09/29/16 [History] Fluticasone Propionate Nasal [Flonase] 50 mcg NS DAILY 09/29/16 [History] Gabapentin [Neurontin] 800 mg PO QID 09/29/16 [History] Levothyroxine [Synthroid] 25 mcg PO 0630 09/29/16 [History] Lidocaine 4% CRM (LMX) [Lmx 4] 1 appl TP BID PRN 09/29/16 [History] Loratadine [Claritin] 10 mg PO DAILY 09/29/16 [History] Magnesium Oxide [Magnesium] 400 mg PO DAILY 09/29/16 [History] Oxybutynin Chloride [Ditropan Xl] 15 mg PO DAILY 09/29/16 [History] SUMAtriptan Succinate [Imitrex] 100 mg PO DAILY PRN 09/29/16 [History] Spironolactone [Aldactone] 100 mg PO DAILY 09/29/16 [History] hydrOXYzine pamoate [HydrOXYzine Pamoate] 25 mg PO Q6H PRN 09/29/16 [History] Allergies acetaminophen [From Tylenol-Codeine #3] Allergy (Verified 04/03/16 17:04) Anaphylaxis Bleach (Sodium Hypochlorite) Allergy (Verified 04/03/16 17:04) Hives celecoxib [From Celebrex] Allergy (Verified 10/31/14 19:33) Rash codeine [From Tylenol-Codeine #3] Allergy (Verified 04/03/16 17:04) Anaphylaxis divalproex sodium [From Depakote] Allergy (Verified 10/31/14 19:33) Rash phenytoin [From Dilantin] Allergy (Verified 10/31/14 19:33) Rash [place] Allergy (Verified 01/27/16 16:00) Rash cranberry Adverse Reaction (Verified 04/03/16 17:04) Vomiting IVP DYE Allergy (Uncoded 10/31/14 19:33) Rash PINE-KRYSTEN Allergy (Uncoded 04/03/16 17:04) Rash All Systems PM: A 10-system review of systems was performed and is negative for pertinent findings except as documented above in the HPI. - Constitutional Constitutional: chills, no fever(s), no night sweats - EENT Eyes: no change in vision, no discharge, no pain, no photophobia Ears: no ear discharge, no ear pain, no tinnitus Nose, mouth and throat: no dysphagia, no nasal discharge, no neck pain, no sore throat - Cardiovascular Cardiovascular ROS IM: dyspnea, no chest pain, no diaphoresis, no dyspnea on exertion, no lightheadedness, no palpitations, no syncope - Respiratory Respiratory: dyspnea, no cough, no wheezing, no excessive phlegm production - Gastrointestinal Gastrointestinal: nausea, vomiting, no abdominal pain, no diarrhea, no hematemesis, no hematochezia, no melena - Genitourinary Genitourinary: no change in urinary stream, no dysuria, no flank pain, no hematuria - Musculoskeletal Musculoskeletal ROS IM: numbness (BLE chronic), tingling (BLE chronic) - Integumentary Integumentary IM: skin ulcer, no rash, no unusual bruising - Neurological Neurological ROS: no confusion, no convulsions, no focal weakness, no numbness, no tingling, no tremor(s) - Hematologic/Lymphatic Hematologic/Lymphatic: no easy bruising - Constitutional Vitals: Temp Pulse Resp BP Pulse Ox 98 F 64 15 109/69 97 09/29/16 22:40 09/29/16 22:40 09/29/16 22:40 09/29/16 22:40 09/29/16 23:05 General appearance: Present: A&O X 3, pleasant, no acute distress - Head Head exam: Present: atraumatic, normocephalic - Eye Eye exam: Present: PERRL, conjuntiva pink, sclera anicteric Pupils: Present: PERRL - Neck Neck exam general surgery: Present: supple, trachea midline. Absent: lymphadenopathy - Respiratory Respiratory exam: Present: CTAB. Absent: accessory muscle use, rales, rhonchi, wheezes - Cardiovascular Cardiovascular exam: Present: RRR, +S1, +S2. Absent: diastolic murmur, gallop, rubs, systolic murmur - GI/Abdominal GI/Abdominal exam: Present: normal bowel sounds, soft, no peritoneal signs. Absent: distended, tenderness - Extremities Exam Extremities exam: Present: normal capillary refill, pedal edema, tenderness, warm, radial pulses palpable and symetrical. Absent: calf tenderness, cyanotic - Expanded Lower Extremities Exam Foot/Toe exam: Present: erythema, swelling, tenderness - Neurological Exam Neurological exam: Present: CN II-XII intact, oriented X3, no focal deficits. Absent: facial droop, speech deficit - Skin Skin exam: Present: dry, intact Additional comments: 3cm Ulcer to the dorsum of her right foot involving the third through fifth MTPs and metatarsals. There is no exposed bone, but subcutaneous fat is exposed. Internal Med - H&P Results - Labs CBC & Chem 7: 09/29/16 19:12 09/29/16 19:12 Labs: All Lab Results (24 Hours) 09/29/16 09/29/16 09/29/16 Range/Units 19:12 19:12 19:12 WBC 13.6 H (4.3-11.1) K/mcL RBC 4.49 (3.82-4.97) M/mcL Hgb 12.6 (11.5-15.4) g/dL Hct 40.1 (35.3-44.9) % MCV 89.3 (83.0-100.0) fL MCH 28.1 (28.0-33.3) pg MCHC 31.4 L (31.6-35.5) g/dL RDW 14.8 H (11.5-14.5) % Plt Count 394 (140-400) K/mcL MPV 10.2 (9.4-12.4) fL Immature Gran % 1.0 (0-4) % Seg Neutrophils % 69.7 % Lymphocytes % 19.9 % Monocytes % 5.9 % Eosinophils % 3.1 % Basophils % 0.4 % Neutrophils # 9.5 H (1.6-8.9) K/mcL Lymphocytes # 2.7 (0.6-4.6) K/mcL Monocytes # 0.8 (0.0-1.3) K/mcL Eosinophils # 0.4 (0.0-0.6) K/mcL Basophils # 0.1 (0.0-0.2) K/mcL Immature Plt Fraction 4.6 (1.1-6.1) % ESR 25 H (0-15) mm/hr Sodium 135 L (136-145) mEq/L Potassium 4.5 (3.5-4.5) mEq/L Chloride 105 (98-109) mEq/L Carbon Dioxide 18 L (19-29) mEq/L BUN 16 (7-20) mg/dL Creatinine 2.02 H (0.57-1.11) mg/dL Est GFR ( Amer) 32 L (> 60) Est GFR (Non-Af Amer) 26 L (> 60) BUN/Creatinine Ratio 8 (6-26) Glucose 107 H (70-99) mg/dL POC Glucose (58-89) Est Mean Plasma Glucose mg/dl Hemoglobin A1c ( - 5.6) % Calculated Osmolality 282 (280-300) Lactic Acid (0.5-2.2) mmol/L Calcium 9.6 (8.6-10.8) mg/dL C-Reactive Protein 2 (Less than 5) mg/L 09/29/16 09/29/16 09/29/16 Range/Units 19:12 19:12 22:22 WBC (4.3-11.1) K/mcL RBC (3.82-4.97) M/mcL Hgb (11.5-15.4) g/dL Hct (35.3-44.9) % MCV (83.0-100.0) fL MCH (28.0-33.3) pg MCHC (31.6-35.5) g/dL RDW (11.5-14.5) % Plt Count (140-400) K/mcL MPV (9.4-12.4) fL Immature Gran % (0-4) % Seg Neutrophils % % Lymphocytes % % Monocytes % % Eosinophils % % Basophils % % Neutrophils # (1.6-8.9) K/mcL Lymphocytes # (0.6-4.6) K/mcL Monocytes # (0.0-1.3) K/mcL Eosinophils # (0.0-0.6) K/mcL Basophils # (0.0-0.2) K/mcL Immature Plt Fraction (1.1-6.1) % ESR (0-15) mm/hr Sodium (136-145) mEq/L Potassium (3.5-4.5) mEq/L Chloride (98-109) mEq/L Carbon Dioxide (19-29) mEq/L BUN (7-20) mg/dL Creatinine (0.57-1.11) mg/dL Est GFR ( Amer) (> 60) Est GFR (Non-Af Amer) (> 60) BUN/Creatinine Ratio (6-26) Glucose (70-99) mg/dL POC Glucose 189 H (58-89) Est Mean Plasma Glucose 134 mg/dl Hemoglobin A1c 6.3 H ( - 5.6) % Calculated Osmolality (280-300) Lactic Acid 1.5 (0.5-2.2) mmol/L Calcium (8.6-10.8) mg/dL C-Reactive Protein (Less than 5) mg/L - Diagnostic Studies Other Images Additional comments: Foot X-Ray 09/29/16 18:50 IMPRESSION: Soft tissue swelling along the lateral aspect of the forefoot suggesting cellulitis. No soft tissue gas. No specific radiographic evidence of osteomyelitis. D/ / 09/29/2016 19:32:38 Thiago Hernandez MD / esther Interpreting Provider: Thiago Hernandez MD
[2016-09-29 23:17] LABS: Hemoglobin A1C 6.3 %
[2016-09-30] MEDS: Topiramate 100 MG TABLET PO SCH ×3 (00:26→21:44)
[2016-09-30] MEDS: traZODone 50 MG TABLET PO SCH ×2 (00:26→21:44)
[2016-09-30] MEDS: *HR* HYDROcodone/Acet 5/325 mg TABLET PO PRN ×3 (00:26→15:53)
[2016-09-30] MEDS: 0.9 % Sodium Chloride 1,000 ML IVC SCH ×2 (00:27→14:20)
[2016-09-30 01:14] LABS: Basophils # 0.1 K/mcL (0.0-0.2); Basophils % 0.5 %; Eosinophils # 0.7 K/mcL (0.0-0.6); Eosinophils % 4.4 %; Hematocrit 39.2 % (35.3-44.9); Hemoglobin 12.2 g/dL (11.5-15.4); Immature Granulocytes % 1.1 % (0-4); Lymphocytes # 4.3 K/mcL (0.6-4.6); Lymphocytes % 28.3 %; Mean Corpuscular HGB Conc 31.1 g/dL (31.6-35.5); Mean Corpuscular Hemoglobin 28.1 pg (28.0-33.3); Mean Corpuscular Volume 90.3 fL (83.0-100.0); Mean Platelet Volume 10.5 fL (9.4-12.4); Monocytes # 1.1 K/mcL (0.0-1.3); Monocytes % 7.3 %; Neutrophils # 8.9 K/mcL (1.6-8.9); Platelet Count 388 K/mcL (140-400); Red Blood Count 4.34 M/mcL (3.82-4.97); Red Cell Distribution Width 14.7 % (11.5-14.5); Segmented Neutrophils % 58.4 %
[2016-09-30 01:28] LABS: Calcium 9.2 mg/dL (8.6-10.8); Potassium 4.3 mEq/L (3.5-4.5)
[2016-09-30] MEDS: Insulin DETEMIR 100 UNIT/ML X5UNITS SQ SCH ×2 (01:51→22:21)
[2016-09-30] MEDS: Piperacillin/Tazobactam 3.375 GM in D5% in Water (Mini-Bag+) 100 ML IVPB SCH ×3 (06:42→21:46)
[2016-09-30] MEDS: Levothyroxine 25 MCG TABLET PO SCH (06:42)
[2016-09-30] MEDS: *HR* Heparin 5,000 UNIT/ML VIAL SQ SCH ×3 (06:43→21:46)
[2016-09-30] MEDS: Insulin LISPRO 300 UNITS/3 ML VIAL SQ SCH ×3 (09:39→15:58)
[2016-09-30] MEDS: Fluticasone Propionate Nasal 50 MCG/SPRAY BOTTLE NS SCH (09:42)
[2016-09-30] MEDS: clonazePAM 1 MG TABLET PO PRN (09:47)
[2016-09-30] MEDS: Nicotine 14 MG PATCH.TD24 TD SCH (10:29)
[2016-09-30] MEDS: Budesonide/Formoterol 160/4.5 MDI IH SCH ×2 (10:44→22:29)
[2016-09-30] MEDS: *HR* HYDROmorphone (PF) 1 MG/ML SYRINGE IVP PRN ×3 (11:07→21:42)
--- NOTE | 2016-09-30 13:01 | Podiatry Consult Note ---
Date of Encounter: 09/30/16 Time of Encounter: 12:59 Assessment and Plan (1) Ischemic ulcer of right foot with fat layer exposed Current visit: No Status: Acute Assessment: #1 diabetic ischemic ulcer dorsal aspect of right foot involving toes to 3 and 4 as well #2 multiple comorbidities including tobaccoism Plan: #1 recommend noninvasive vascular studies to determine arterial perfusion with vascular consultation recommended #2 begin local wound care with use of Santyl ointment twice a day History of Present Illness Chief complaint: Foot ulcer right HPI: Ms. Dent is a 51 year old female presents with foot ulcer. Patient is known to me. She is in inveterate smoker. He presents through ED for nonhealing wound. Patient is not cooperative with the plan of care and has missed multiple appointments for care of this wound. She is not having chest pain nausea vomiting fever or chills presently. Patient states she expects to have her toe is removed. I explained to her that without adequate evaluation of her vascular status that aggressive surgical intervention may do her to a below-knee amputation without appropriate evaluation prior to any surgical intervention Past Med Surg Social Fam HX - Past Medical History Medical history: COPD, diabetes, GERD, hyperlipidemia, hypertension, liver disease, migraine, seizures, other Psychiatric history: anxiety, bipolar, depression - Past Surgical History Surgical History: appendectomy, , cholecystectomy, hysterectomy, orthopedic, other - Social History Smoking Status: Current every day smoker Packs per day: 1 Smokeless Tobacco Status: No Alcohol use: none Drug use: marijuana - Family History Mother History Unknown: Yes Adopted: [place]: Destiny Quezada Age: 48 Family Member Ethnicity: Non- Living Status: Age at : 48 Cause of : NH Hx Family Cardiac Disorders: Yes (Heart attack) Hx Family Respiratory Disorders: Yes (copd) Hx Family Cancer: Yes (breast cancer) Hx Family GI Disorders: No Hx Family Genitourinary Disorders: No Hx Family Endocrine Disorder: Yes (Diabetes) Hx Family Musculoskeletal Disorders: No Hx Family Neuromuscular Disorders: No Hx Family Neurologic Disorders: No Hx Family HEENT Disorders: No Hx Family Autoimmune Disorders: No Hx Family Reproductive Disorders: No Hx Family Psychosocial Disorders: No Hx Family Medical Disorders: No Medications and Allergies Metoprolol [Lopressor] 25 mg PO DAILY 02/01/16 [History] Omeprazole [PriLOSEC] 20 mg PO BID 03/18/16 [History] clonazePAM [Klonopin] 1 mg PO BID PRN 03/18/16 [History] Insulin ASPART [NovoLOG] 15 unit SQ BIDWM 04/03/16 [History] Insulin Glargine,Hum.rec.anlog [Lantus Solostar] 40 unit SQ HS 04/03/16 [History ] Lipase/Protease/Amylase [Guillermina Dr 24,000 Units Capsule] 2 cap PO TIDWM 04/03/16 [History] Topiramate [Topamax] 200 mg PO BID 04/03/16 [History] Trazodone HCl 150 mg PO HS 04/03/16 [History] metFORMIN [Glucophage] 1,000 mg PO BIDWM 04/03/16 [History] Albuterol Neb [Proventil Neb] 2.5 mg IH AD 09/29/16 [History] Albuterol Sulfate [Proair Hfa] 2 puff IH Q4-6H PRN 09/29/16 [History] Atorvastatin Calcium [Lipitor] 20 mg PO HS 09/29/16 [History] Budesonide/Formoterol 160/4.5 [Symbicort 160/4.5] 2 puff IH BID 09/29/16 [ History] Calcium Carbonate/Vitamin D3 [Oyster Shell Calcium-Vit D Tab] 1 each PO BID [History] DULoxetine [Cymbalta] 20 mg PO BID 09/29/16 [History] Diclofenac Sodium [Voltaren] 1 appl TP BID 09/29/16 [History] Estradiol [Estrace] 1 mg PO DAILY 09/29/16 [History] Fluticasone Propionate Nasal [Flonase] 50 mcg NS DAILY 09/29/16 [History] Gabapentin [Neurontin] 800 mg PO QID 09/29/16 [History] Levothyroxine [Synthroid] 25 mcg PO 0630 09/29/16 [History] Lidocaine 4% CRM (LMX) [Lmx 4] 1 appl TP BID PRN 09/29/16 [History] Loratadine [Claritin] 10 mg PO DAILY 09/29/16 [History] Magnesium Oxide [Magnesium] 400 mg PO DAILY 09/29/16 [History] Oxybutynin Chloride [Ditropan Xl] 15 mg PO DAILY 09/29/16 [History] SUMAtriptan Succinate [Imitrex] 100 mg PO DAILY PRN 09/29/16 [History] Spironolactone [Aldactone] 100 mg PO DAILY 09/29/16 [History] hydrOXYzine pamoate [HydrOXYzine Pamoate] 25 mg PO Q6H PRN 09/29/16 [History] Allergies acetaminophen [From Tylenol-Codeine #3] Allergy (Verified 04/03/16 17:04) Anaphylaxis Bleach (Sodium Hypochlorite) Allergy (Verified 04/03/16 17:04) Hives celecoxib [From Celebrex] Allergy (Verified 10/31/14 19:33) Rash codeine [From Tylenol-Codeine #3] Allergy (Verified 04/03/16 17:04) Anaphylaxis divalproex sodium [From Depakote] Allergy (Verified 10/31/14 19:33) Rash phenytoin [From Dilantin] Allergy (Verified 10/31/14 19:33) Rash [place] Allergy (Verified 01/27/16 16:00) Rash cranberry Adverse Reaction (Verified 04/03/16 17:04) Vomiting IVP DYE Allergy (Uncoded 10/31/14 19:33) Rash PINE-KRYSTEN Allergy (Uncoded 04/03/16 17:04) Rash All Systems Reviewed: A 10-system review of systems was performed and is negative for pertinent findings except as documented above in the HPI. Physical Exam - Constitutional Vitals: Temp Pulse Resp BP Pulse Ox 98 F 63 16 98/66 98 09/30/16 11:52 09/30/16 11:52 09/30/16 11:52 09/30/16 11:52 09/30/16 11:52 General appearance: average body habitus - Skin Additional comments: Wound dorsal aspect of right foot encompassing the dorsal aspects of toes 34 and 5 as far proximal as the distal aspect of metatarsals. Wound is full-thickness with evidence of penetration of subcutaneous tissue especially in the webspace. No ascending lymphangitis no odor no purulent drainage - Vascular Lower Extremity Vascular: pulse deficit (Pedal pulses nonpalpable. Skin cool to touch from toes to tibia. No daniel cyanosis. Capillary refill time is sluggish.) Results - Labs Result Diagrams: 09/30/16 00:45 09/30/16 00:45 Labs: Abnormal lab results WBC 15.3 K/mcL (4.3-11.1) H 09/30/16 00:45 MCHC 31.1 g/dL (31.6-35.5) L 09/30/16 00:45 RDW 14.7 % (11.5-14.5) H 09/30/16 00:45 Eosinophils # 0.7 K/mcL (0.0-0.6) H 09/30/16 00:45 ESR 25 mm/hr (0-15) H 09/29/16 19:12 Sodium 135 mEq/L (136-145) L 09/30/16 00:45 Creatinine 2.01 mg/dL (0.57-1.11) H 09/30/16 00:45 Est GFR ( Amer) 32 (> 60) L 09/30/16 00:45 Est GFR (Non-Af Amer) 26 (> 60) L 09/30/16 00:45 Glucose 187 mg/dL (70-99) H 09/30/16 00:45 POC Glucose 119 (58-89) H 09/30/16 11:58 Hemoglobin A1c 6.3 % (-5.6) H 09/29/16 19:12 H & H 09/30/16 Range/Units 00:45 Hgb 12.2 (11.5-15.4) g/dL Hct 39.2 (35.3-44.9) % All other labs normal. Consult Discharge Plan - Plan Referrals: Maximus Miller, PAC [Primary Care Provider] -
--- NOTE | 2016-09-30 16:46 | Internal Med Progress Note ---
Date of Encounter: 09/30/16 Time of Encounter: 14:30 - Assessment and plan (1) Ischemic ulcer of right foot with fat layer exposed Current Visit: No Status: Acute Assessment and plan: No change noticed cont broad spec empirical abx Zosyn and Vanco cont close monitoring will f/u on wound cx, blood cx Manager Spring Dr. Liu on board ordered vascular studies..will f/u on the test results Pt seems to be a heavy smoker too..counseled the pt to quit smoking cont local wound care (2) Cellulitis Current Visit: Yes Status: Acute Assessment and plan: Cont empirical abx Qualifiers: Site of cellulitis: extremity Laterality: right Qualified Code(s): L03.115 - Cellulitis of right lower limb (3) Diabetes mellitus Current Visit: Yes Status: Chronic Assessment and plan: Hb A1C - 6.3 Cont on ISS and Levemir Qualifiers: Qualified Code(s): E11.9 - Type 2 diabetes mellitus without complications (4) COPD (chronic obstructive pulmonary disease) Current Visit: Yes Status: Chronic Assessment and plan: Not in exacerbation resumed home meds Qualifiers: COPD type: unspecified COPD Qualified Code(s): J44.9 - Chronic obstructive pulmonary disease, unspecified (5) Hypertension Current Visit: No Status: Chronic Assessment and plan: stable with home meds Qualifiers: Hypertension type: essential hypertension Qualified Code(s): I10 - Essential (primary) hypertension (6) Seizure disorder Current Visit: Yes Status: Chronic Assessment and plan: no more seizure activity cont close monitoring resumed home med topamax and Clonopin (7) DVT prophylaxis Current Visit: No Status: Acute Assessment and plan: on SQ Heparin (8) Tobacco dependence Current Visit: Yes Status: Acute Assessment and plan: counseled to quit smoking placed on nicotine patches - Subjective Interval history: Ms. Dent is a 51 year old female with HTN, HLD, COPD, GERD, Type 2 diabetes , seizure disorder, bipolar disorder presented to the ED today with worsening diabetic foot ulcer of right foot. Pt was started on empirical abx last night. Now she resting comfortably. Denied any CP / SOB. Asking for more pain meds for her Rt foot pain. - Constitutional Vitals: Temp Pulse Resp BP Pulse Ox 97.7 F 73 16 158/84 99 09/30/16 15:50 09/30/16 15:50 07/14/17 16:09 09/30/16 15:50 09/30/16 16:09 General appearance: Present: A&O X 3, pleasant, no acute distress - Respiratory Respiratory exam: Present: decreased breath sounds, wheezes. Absent: rales, rhonchi - Cardiovascular Cardiovascular exam: Present: RRR, +S1, +S2. Absent: diastolic murmur, gallop, rubs, systolic murmur - GI/Abdominal GI/Abdominal exam: Present: normal bowel sounds, soft. Absent: distended, rebound, tenderness - Extremities Exam Additional comments: Open ulcer / wound 4 to 5 cm size over dorsal side of rt foot at 3,4,5 th MTP region.. Some granulation tissues noticed on the floor of the wound. No foul odor discharge noticed. no localized fluid / abscess noticed. erythema around the ulcer noticed - Psychiatric Psychiatric exam: Present: normal affect, normal mood Internal Medicine: Result - Labs CBC & Chem 7: 09/30/16 00:45 09/30/16 00:45 Labs: Short CBC 09/30/16 Range/Units 00:45 WBC 15.3 H (4.3-11.1) K/mcL Hgb 12.2 (11.5-15.4) g/dL Hct 39.2 (35.3-44.9) % Plt Count 388 (140-400) K/mcL Neutrophils # 8.9 (1.6-8.9) K/mcL BMP 09/30/16 00:45 Sodium 135 L Potassium 4.3 Chloride 104 Carbon Dioxide 19 BUN 15 Creatinine 2.01 H Glucose 187 H Calcium 9.2 Consult Discharge Plan - Plan Referrals: Maximus Miller, PAC [Primary Care Provider] -
[2016-09-30] MEDS ORDERED: Insulin LISPRO 300 UNITS/3 ML VIAL SQ SCH (21:00)
[2016-09-30] MEDS ORDERED: Vancomycin 1,250 MG in D5% in Water 250 ML IVPB SCH (21:00)
[2016-10-01] MEDS: *HR* HYDROcodone/Acet 5/325 mg TABLET PO PRN ×2 (04:06→11:22)
[2016-10-01] MEDS: *HR* Heparin 5,000 UNIT/ML VIAL SQ SCH ×2 (06:50→13:25)
[2016-10-01] MEDS: Piperacillin/Tazobactam 3.375 GM in D5% in Water (Mini-Bag+) 100 ML IVPB SCH ×2 (06:51→13:25)
[2016-10-01] MEDS: Levothyroxine 25 MCG TABLET PO SCH (06:51)
[2016-10-01] MEDS: *HR* HYDROmorphone (PF) 1 MG/ML SYRINGE IVP PRN ×3 (07:09→18:30)
--- NOTE | 2016-10-01 07:29 | Arterial Study Report ---
LE Arterial Physiologic Study Patient Name:Gabbie eDnt Order Number:[id number] Procedure Date:09/30/2016 Date:1965Age:51 yrs Gender:Female Lt BP:145 / mmHg Rt.BP:148 / mmHgHeart Rate: Location:[facility] Room #: [facility] [employer] Supervisor:Ludmila Edwards Referring MD:Bowen Liu DPM car dispatcher:None Reading MD:Sal Thakkar MD Primary Indications:Diabetic foot ulcer w/infection Risk Factors Yes/No Smoking Current Diabetes Hypercholesterolemia Hx of TIA Impressions: The right ANALISA and waveforms are consistent with moderate disease. Right ANALISA 0.66. The left ANALISA and waveforms are consistent with moderate disease. Left ANALISA 0.70. Recommendations: Risk factor reduction. Further evaluation recommended if clinically indicated. Findings LE Arterial Physiologic Exam: PVR: Right: The PVR waveforms are moderately diminished in the right high thigh, right lower thigh, right calf and right ankle. Left: The PVR waveforms are mildly diminished in the left high thigh and left lower thigh and moderately diminished in the left calf and left ankle. Prior Study: No prior study available for comparison. Segmental Pressures Side Location Pressure Index Result Right High Thigh 104 0.70 Moderately Diminished Right Above Knee 89 0.60 Moderately Diminished Right Below Knee 90 0.61 Moderately Diminished Right Posterior Tibial 88 0.59 Moderately Diminished Right Dorsalis Pedis 97 0.66 Moderately Diminished Left High Thigh 133 0.90 Mildly Diminished Left Above Knee 135 0.91 Mildly Diminished Left Below Knee 96 0.65 Moderately Diminished Left Posterior Tibial 101 0.68 Moderately Diminished Left Dorsalis Pedis 103 0.70 Moderately Diminished Ankle Brachial Index Right Systolic Diastolic ANALISA Brachial 148 0.66 Dorsalis Pedis 97 0.66 Posterior Tibial 88 0.59 Left Systolic Diastolic ANALISA Brachial 145 0.70 Dorsalis Pedis 103 0.70 Posterior Tibial 101 0.68 Updated by Sal Thakkar MD on 10/01/2016 7:25:07 AM with Status of Final electronically signed on 10/01/2016 7:25:18 AM with status of Final
[2016-10-01] MEDS: Insulin LISPRO 300 UNITS/3 ML VIAL SQ SCH ×3 (07:48→17:43)
[2016-10-01] MEDS: Topiramate 100 MG TABLET PO SCH (08:48)
[2016-10-01] MEDS: Nicotine 14 MG PATCH.TD24 TD SCH (08:48)
[2016-10-01] MEDS: Fluticasone Propionate Nasal 50 MCG/SPRAY BOTTLE NS SCH (08:49)
--- NOTE | 2016-10-01 09:15 | Podiatry Progress Note ---
Date of Encounter: 10/01/16 Time of Encounter: 09:11 - Assessment and Plan (1) Ischemic ulcer of right foot with fat layer exposed Current Visit: No Status: Acute Assessment: #1 diabetic foot ulcer right side unchanged #2 arterial studies complete with diminished vascular perfusion #3 reluctant to debride the wound on the right foot surgically until such time we would have adequate perfusion to support healing Plan: #1 continue enzymatic debridement with Santyl/dressing changes twice a day #2 recommend vascular surgical consultation for possible angiogram and further evaluation by vascular surgery service. Subjective Principal diagnosis: Diabetic foot ulcer dorsal right foot Interval history: Patient underwent noninvasive, vascular studies revealing moderate disease of the right foot area Objective - Vital Signs Vital Signs: Vital Signs Temp Pulse Resp BP Pulse Ox 10/01/16 06:34 97.7 F 91 18 123/76 97 10/01/16 01:24 97.9 F 85 20 120/73 97 09/30/16 22:29 18 98 09/30/16 21:38 98.8 F 71 18 116/75 97 09/30/16 21:00 98 09/30/16 16:09 16 99 09/30/16 15:50 97.7 F 73 18 158/84 98 09/30/16 11:52 98 F 63 16 98/66 98 09/30/16 10:52 16 96 Intake and Output 09/30/16 10/01/16 10/01/16 23:59 07:59 15:59 Intake Total 200 / 200 350 / 350 Output Total 900 / 900 1025 / 1025 Balance -700 / -700 -675 / -675 Intake: IV Fluids 100 / 100 100 / 100 Zosyn 3.375 GM In 100 / 100 100 / 100 Dextrose 5% (Minibag+) 100 ML 100 ML @ 25 mls/hr IVPB Q8H [facility] Rx#: [id number] Oral 100 / 100 250 / 250 Output: Urine 900 / 900 1025 / 1025 Other: # Voids 1 Blood Glucose* 126 126 - Exam Exam: #1 foot ulcer dorsal aspect of right forefoot encompassing toes 345 and MTPJ, unchanged. Capillary Refill: sluggish - Lab Result Diagrams: 09/30/16 00:45 09/30/16 00:45 Labs: Abnormal lab results WBC 15.3 K/mcL (4.3-11.1) H 09/30/16 00:45 MCHC 31.1 g/dL (31.6-35.5) L 09/30/16 00:45 RDW 14.7 % (11.5-14.5) H 09/30/16 00:45 Eosinophils # 0.7 K/mcL (0.0-0.6) H 09/30/16 00:45 ESR 25 mm/hr (0-15) H 09/29/16 19:12 Sodium 135 mEq/L (136-145) L 09/30/16 00:45 Creatinine 2.01 mg/dL (0.57-1.11) H 09/30/16 00:45 Est GFR ( Amer) 32 (> 60) L 09/30/16 00:45 Est GFR (Non-Af Amer) 26 (> 60) L 09/30/16 00:45 Glucose 187 mg/dL (70-99) H 09/30/16 00:45 POC Glucose 130 (58-89) H 10/01/16 07:37 Hemoglobin A1c 6.3 % (-5.6) H 09/29/16 19:12 Consult Discharge Plan - Plan Referrals: Maximus Miller, PAC [Primary Care Provider] -
[2016-10-01] MEDS: Budesonide/Formoterol 160/4.5 MDI IH SCH ×2 (10:59→21:46)
[2016-10-01] MEDS: clonazePAM 1 MG TABLET PO PRN (11:23)
--- NOTE | 2016-10-01 13:19 | Internal Med Progress Note ---
Date of Encounter: 10/01/16 Time of Encounter: 13:17 - Assessment and plan (1) Ischemic ulcer of right foot with fat layer exposed Current Visit: No Status: Acute Assessment and plan: No change noticed cont broad spec empirical abx Zosyn and Vanco cont close monitoring wound cx, blood cx - P Detonator Assembler Dr. Liu on board Reviewed vascular studies showing moderate vascular insufficiency Consulted vascular surgeon for further work up Pt seems to be a heavy smoker too..counseled the pt to quit smoking cont local wound care santyl dressing BID changed pain meds to Dilaudid 1mg Q4hr prn and [place] PRN (2) Arterial insufficiency with ischemic ulcer Current Visit: Yes Status: Acute Assessment and plan: Reviewed vascular studies showing moderate vascular insufficiency Consulted vascular surgeon for further work up Pt seems to be a heavy smoker too..counseled the pt to quit smoking (3) Cellulitis Current Visit: Yes Status: Acute Assessment and plan: Cont empirical abx Qualifiers: Site of cellulitis: extremity Laterality: right Qualified Code(s): L03.115 - Cellulitis of right lower limb (4) Diabetes mellitus Current Visit: Yes Status: Chronic Assessment and plan: Hb A1C - 6.3 Cont on ISS and Levemir Qualifiers: Qualified Code(s): E11.9 - Type 2 diabetes mellitus without complications (5) COPD (chronic obstructive pulmonary disease) Current Visit: Yes Status: Chronic Assessment and plan: Not in exacerbation resumed home meds Qualifiers: COPD type: unspecified COPD Qualified Code(s): J44.9 - Chronic obstructive pulmonary disease, unspecified (6) Hypertension Current Visit: No Status: Chronic Assessment and plan: stable with home meds Qualifiers: Hypertension type: essential hypertension Qualified Code(s): I10 - Essential (primary) hypertension (7) Seizure disorder Current Visit: Yes Status: Chronic Assessment and plan: no more seizure activity cont close monitoring resumed home med topamax and Clonopin (8) DVT prophylaxis Current Visit: No Status: Acute Assessment and plan: on SQ Heparin (9) Tobacco dependence Current Visit: Yes Status: Acute Assessment and plan: counseled to quit smoking placed on nicotine patches - Subjective Interval history: Ms. Dent is a 51 year old female with HTN, HLD, COPD, GERD, Type 2 diabetes , seizure disorder, bipolar disorder presented to the ED today with worsening diabetic foot ulcer of right foot. Pt was started on empirical abx . Still c/o severe pain in Rt foot. Denied any CP / SOB. Asking for more pain meds for her Rt foot pain. - Constitutional Vitals: Temp Pulse Resp BP Pulse Ox 98 F 97 16 127/74 96 10/01/16 09:58 10/01/16 09:58 10/01/16 09:58 10/01/16 09:58 10/01/16 09:58 General appearance: Present: A&O X 3, pleasant, no acute distress - Respiratory Respiratory exam: Present: CTAB. Absent: accessory muscle use, rales, rhonchi, wheezes - Cardiovascular Cardiovascular exam: Present: RRR, +S1, +S2. Absent: diastolic murmur, gallop, rubs, systolic murmur - Extremities Exam Extremities exam: Present: tenderness. Absent: calf tenderness, pedal edema Additional comments: 4 cm size open wound over Rt foot 3rd,4t,5th MTP proximal region dorsally.. underneath fat pad visible..moderate erythema noticed around the ulcer and distal part of foot Rt noticed - Psychiatric Psychiatric exam: Present: normal affect, normal mood Internal Medicine: Result - Labs CBC & Chem 7: 09/30/16 00:45 09/30/16 00:45 Consult Discharge Plan - Plan Referrals: Maximus Miller, PAC [Primary Care Provider] -
[2016-10-01] MEDS ORDERED: *HR* LORazepam 2 MG/ML VIAL IVP PRN (13:32)
[2016-10-01 16:29] VITALS: BP 122/78
[2016-10-01] MEDS ORDERED: Aminoglycoside Consult 1 EACH MC ONE (20:59)
--- NOTE | 2016-10-02 15:17 | Discharge Summary ---
Date of Encounter: 10/02/16 Time of Encounter: 15:13 - Discharge Diagnosis (1) Ischemic ulcer of right foot with fat layer exposed Priority: Primary Status: Acute (2) Arterial insufficiency with ischemic ulcer Priority: Primary Status: Acute (3) Cellulitis Priority: Primary Status: Acute Qualifiers: Site of cellulitis: extremity Laterality: right Qualified Code(s): L03.115 - Cellulitis of right lower limb (4) Diabetes mellitus Priority: Secondary Status: Chronic Qualifiers: Qualified Code(s): E11.9 - Type 2 diabetes mellitus without complications (5) COPD (chronic obstructive pulmonary disease) Priority: Secondary Status: Chronic Qualifiers: COPD type: unspecified COPD Qualified Code(s): J44.9 - Chronic obstructive pulmonary disease, unspecified (6) Hypertension Priority: Secondary Status: Chronic Qualifiers: Hypertension type: essential hypertension Qualified Code(s): I10 - Essential (primary) hypertension (7) Seizure disorder Priority: Secondary Status: Chronic (8) Tobacco dependence Priority: Secondary Status: Acute - Discharge Medications Prescriptions: Amoxicillin/Clavulanate [Augmentin] 875 mg PO BIDWM #20 tablet Collagenase Oint [Santyl] 1 appl TP BID #1 Nicotine Patch [Nicoderm] 14 mg TD DAILY #28 Saccharomyces Boulardii [Florastor] 250 mg PO BID #20 capsule Home Medications: Metoprolol [Lopressor] 25 mg PO DAILY 02/01/16 [History] Omeprazole [PriLOSEC] 20 mg PO BID 03/18/16 [History] clonazePAM [Klonopin] 1 mg PO BID PRN 03/18/16 [History] Insulin ASPART [NovoLOG] 15 unit SQ BIDWM 04/03/16 [History] Insulin Glargine,Hum.rec.anlog [Lantus Solostar] 40 unit SQ HS 04/03/16 [History ] Lipase/Protease/Amylase [Creon Dr 24,000 Units Capsule] 2 cap PO TIDWM 04/03/16 [History] Topiramate [Topamax] 200 mg PO BID 04/03/16 [History] Trazodone HCl 150 mg PO HS 04/03/16 [History] metFORMIN [Glucophage] 1,000 mg PO BIDWM 04/03/16 [History] Albuterol Neb [Proventil Neb] 2.5 mg IH AD 09/29/16 [History] Albuterol Sulfate [Proair Hfa] 2 puff IH Q4-6H PRN 09/29/16 [History] Atorvastatin Calcium [Lipitor] 20 mg PO HS 09/29/16 [History] Budesonide/Formoterol 160/4.5 [Symbicort 160/4.5] 2 puff IH BID 09/29/16 [ History] Calcium Carbonate/Vitamin D3 [Oyster Shell Calcium-Vit D Tab] 1 each PO BID [History] DULoxetine [Cymbalta] 20 mg PO BID 09/29/16 [History] Diclofenac Sodium [Voltaren] 1 appl TP BID 09/29/16 [History] Estradiol [Estrace] 1 mg PO DAILY 09/29/16 [History] Fluticasone Propionate Nasal [Flonase] 50 mcg NS DAILY 09/29/16 [History] Gabapentin [Neurontin] 800 mg PO QID 09/29/16 [History] Levothyroxine [Synthroid] 25 mcg PO 0630 09/29/16 [History] Lidocaine 4% CRM (LMX) [Lmx 4] 1 appl TP BID PRN 09/29/16 [History] Loratadine [Claritin] 10 mg PO DAILY 09/29/16 [History] Magnesium Oxide [Magnesium] 400 mg PO DAILY 09/29/16 [History] Oxybutynin Chloride [Ditropan Xl] 15 mg PO DAILY 09/29/16 [History] SUMAtriptan Succinate [Imitrex] 100 mg PO DAILY PRN 09/29/16 [History] hydrOXYzine pamoate [HydrOXYzine Pamoate] 25 mg PO Q6H PRN 09/29/16 [History] Amoxicillin/Clavulanate [Augmentin] 875 mg PO BIDWM #20 tablet 10/01/16 [Rx] Collagenase Oint [Santyl] 1 appl TP BID #1 10/01/16 [Rx] Nicotine Patch [Nicoderm] 14 mg TD DAILY #28 10/01/16 [Rx] Saccharomyces Boulardii [Florastor] 250 mg PO BID #20 capsule 10/01/16 [Rx] Spironolactone [Aldactone] 50 mg PO DAILY #0 10/01/16 [Rx] Allergies/Adverse Reactions: Allergies acetaminophen [From Tylenol-Codeine #3] Allergy (Verified 04/03/16 17:04) Anaphylaxis Bleach (Sodium Hypochlorite) Allergy (Verified 04/03/16 17:04) Hives celecoxib [From Celebrex] Allergy (Verified 10/31/14 19:33) Rash codeine [From Tylenol-Codeine #3] Allergy (Verified 04/03/16 17:04) Anaphylaxis divalproex sodium [From Depakote] Allergy (Verified 10/31/14 19:33) Rash phenytoin [From Dilantin] Allergy (Verified 10/31/14 19:33) Rash [place] Allergy (Verified 01/27/16 16:00) Rash cranberry Adverse Reaction (Verified 04/03/16 17:04) Vomiting IVP DYE Allergy (Uncoded 10/31/14 19:33) Rash PINE-KRYSTEN Allergy (Uncoded 04/03/16 17:04) Rash Procedures/tests Complete & Pending: Procedures Performed prior 72 hours Category Date Time Status EV arterial study LE Routine Y 09/30/16 12:55 Completed Date of admission: 09/29/16 22:37 Primary care physician: Maximus Miller Consults: 09/29/16 22:45 Consult to Wound Care [CONS] Routine Reason for Consult: foot ulcer Call Completed: No 09/29/16 23:39 Consult to Nutrition [CONS] Routine Comment: Consulting Provider: NUTRITION Reason for Dietary Consult: Diet Education Consult to Pastoral Services [CONS] Routine Comment: Consult to Cost Reduction Engineer [CONS] Routine Reason for SW Consult: Potential need for ECF or HH 09/29/16 23:48 Consult to Podiatry [CONS] Routine Consulting Provider: Podiatry [facility] Reason for Consult: right foot diabetic ulcer with cellulitis Call Completed: No 10/01/16 13:25 Consult to Vascular Surgery [CONS] Stat Consulting Provider: V[facility] [place] Reason for Consult: Ischemic Rt foot ulcer - with moderate arterial insufficiency Call Completed: Yes - Patient Status Disposition: Left Against Medical Advice Condition: Fair - Discharge Instructions Instructions: Cellulitis (DC), Diabetes Mellitus Type 2 in Adults (DC), Chronic Obstructive Pulmonary Disease (DC) Follow Up With: Maximus Miller, PAC [Primary Care Provider] - Hospital course: Ms. Dent is a 51 year old female with a known past medical history of hypertension, hyperlipidemia, diabetes type II, chronic tobacco dependence, chronic epilepsy, who has chronicled non healing ulcer over the right foot admitted in the hospital for acute ischemic ulcer over the right foot at the base of 3rd, 4th,5th toes with visible fat pad. Patient was admitted in the hospital and as we started her on broad-spectrum antibiotic with zosyn and vancomycin. Patient was evaluated by medical policy specialist, recommend to continue enzyematic debridement with santyl and IV antibiotics. Also performed ANALISA and vascular studies for the arterial flow which came back as ANALISA .69 in the right leg .7 in left leg. At this point we consulted vascular surgery. Yesterday evening patient wanted to leave against medical advice, I did talk to her and convinced her to stay in the hospital until she has further evaluation done by vascular surgeon since patients seems to noncompliance once she goes home. However I did write for oral antibiotic to go home if in case patient leaves AMA anytime. This morning patient left AMA around 9 AM even before I got to see the patient. I was not informed about this until 10 AM. So I did not get a chance to examine the patient today. - Time Spent with Patient Total time spent providing and/or coordinating discharge services: - Constitutional Vitals: Temp Pulse Resp BP Pulse Ox 98.3 F 68 18 122/78 94 10/01/16 16:19 10/01/16 16:19 10/01/16 16:37 10/01/16 16:19 10/01/16 16:37 General appearance: Present: A&O X 3, pleasant, no acute distress
== END 2016-10-01 21:00 | disposition left against medical advice (07) | DRG 380 ==
LOC: 3NENU 17:13 → EMEROO 17:13 → 3NENU 22:02
PROVIDERS: ADMIT Pediatrics; ATTEND Family Medicine